=== PATIENT | male | born 1940 | race Asian ===

== ENCOUNTER 2017-05-14 05:34 | Inpatient (IN) | payer MEDICARE, OTHER ==
[~2017-05-14] VITALS: Ht 165.1 cm; Wt 63.5 kg
--- NOTE | 2017-05-14 05:23 | Emergency Room Report ---
History of Present Illness General Source: Patient, Family Member, Medical Record, EMS (ALESSIO BANKS M.D.) Present Illness HPI 79YOM BIBEMS from home with coffee-ground emesis and then vomiting bright red blood. Was drinking "a lot last night." Also, fell and hit head this morning Unclear if patient fell first and then had coffee ground emesis or vice versa HPI very limited even with RN translating Malay states he "had stent placed in heart at [facility]" recently EMS rhythm strip was "sinus." (ALESSIO BANKS M.D.) Allergies: Coded Allergies: No Known Allergies (Unverified , 05/14/17) Patient History Limited by: language barrier Past Medical History: none Past Surgical History: none Pertinent Family History: none Social History: Denies: smoking, alcohol use, drug use Immunizations: UTD Reviewed Nursing Documentation: PMH: Agreed, PSxH: Agreed (ALESSIO BANKS M.D.) Review of Systems All Other Systems: limited - D/t language barrier (ALESSIO BANKS M.D.) Physical Exam Sp02 EP Interpretation: reviewed, normal General Appearance: normal inspection, well appearing, no apparent distress, alert, GCS 15, non-toxic, other - Bright red blood on face Head: normocephalic, atraumatic Eyes: bilateral eye PERRL, bilateral eye EOMI ENT: normal ENT inspection, hearing grossly normal, normal voice, other - Oozing bright red blood from left nostril Neck: normal inspection, full range of motion, supple, no bony tend Respiratory: normal inspection, lungs clear, normal breath sounds, no respiratory distress, no retraction, no accessory muscle use, no wheezing, speaking full sentences, chest symmetrical, palpation of chest normal Cardiovascular #1: regular rate, rhythm, no edema Gastrointestinal: normal inspection, normal bowel sounds, non tender, soft, no guarding, no hernia Genitourinary: no CVA tenderness Musculoskeletal: normal inspection, back normal, normal range of motion, Autumn' s Sign negative Neurologic: normal inspection, alert, responsive, speech normal Psychiatric: normal inspection, judgement/insight normal, mood/affect normal Skin: normal inspection, normal color, no rash (ALESSIO BANKS M.D.) Medical Decision Making Medicare Attestation I Alessio Bnaks MD hereby attest that the medical record entry for date of service, 05/14/17 accurately reflects signatures/notations that I made in my capacity as MD when I treated/diagnosed the above listed Medicare beneficiary. I attest that this information is true, accurate and complete to the best of my knowledge. I understand that any falsification, omission, or concealment of material fact may subject me to administrative, civil, or criminal liability. This patient warrants hospital admission for extreme of age and has a condition that cannot be treated as outpatient. (ALESSIO BANKS M.D.) Diagnostic Impression: Primary Impression: Hematemesis Qualified Codes: K92.0 - Hematemesis Additional Impressions: Upper GI bleed Epistaxis Coffee ground emesis ER Course Unknown if fall preceeded coffee ground emesis/nose bleed or vice versa Very poor history from patient and Will proceed with CT head, facial bones to evaluate for acute trauma Labs to assess for concern for UPPER GI BLEED IV Protonix, zofran, IVF given At time of signout, patient was stable in ED All testing was pending Endorsed to Dr Brown at 630am (ALESSIO BANKS M.D.) ER Course Please refer to the initial note for the history, exam and presentation At this time the patient continues to do hemodynamically well CT head did not show any acute disease CT facial did not show any obvious acute fractures Patient's blood work reveals elevated creatinine Patient does not meet acute transfusion criteria at this time In speaking with the family with Malay deaf interpreter, patient appears to have had vomiting of blood/coffee-ground prior to his fall and epistaxis At this time no signs of acute bleeding And the patient is stable for further inpatient care Labs Test 05/14/17 05:50 White Blood Count 12.8 K/UL (4.8-10.8) Red Blood Count 3.16 M/UL (4.70-6.10) Hemoglobin 10.5 G/DL (14.2-18.0) Hematocrit 32.4 % (42.0-52.0) Mean Corpuscular Volume 103 FL (80-99) Mean Corpuscular Hemoglobin 33.1 PG (27.0-31.0) Mean Corpuscular Hemoglobin Concent 32.3 G/DL (32.0-36.0) Red Cell Distribution Width 11.5 % (11.6-14.8) Platelet Count 161 K/UL (150-450) Mean Platelet Volume 6.6 FL (6.5-10.1) Neutrophils (%) (Auto) 72.3 % (45.0-75.0) Lymphocytes (%) (Auto) 19.3 % (20.0-45.0) Monocytes (%) (Auto) 5.1 % (1.0-10.0) Eosinophils (%) (Auto) 2.9 % (0.0-3.0) Basophils (%) (Auto) 0.4 % (0.0-2.0) Prothrombin Time 9.5 SEC (9.30-11.50) Prothromb Time International Ratio 0.9 (0.9-1.1) Activated Partial Thromboplast Time 22 SEC (23-33) Sodium Level 135 MMOL/L (136-145) Potassium Level 3.4 MMOL/L (3.5-5.1) Chloride Level 97 MMOL/L (98-107) Carbon Dioxide Level 22 MMOL/L (21-32) Anion Gap 16 mmol/L (5-15) Blood Urea Nitrogen 16 mg/dL (7-18) Creatinine 1.4 MG/DL (0.55-1.30) Estimat Glomerular Filtration Rate mL/min (>60) Glucose Level 200 MG/DL (74-106) Calcium Level 8.8 MG/DL (8.5-10.1) Total Bilirubin 0.3 MG/DL (0.2-1.0) Aspartate Amino Transf (AST/SGOT) 39 U/L (15-37) Alanine Aminotransferase (ALT/SGPT) 53 U/L (12-78) Alkaline Phosphatase 60 U/L (46-116) Total Creatine Kinase 115 U/L (26-308) Creatine Kinase MB 1.4 NG/ML (0.0-3.6) Creatine Kinase MB Relative Index 1.2 Troponin I 0.005 ng/mL (0.000-0.056) Pro-B-Type Natriuretic Peptide 397 pg/mL (0-125) Total Protein 7.1 G/DL (6.4-8.2) Albumin 3.7 G/DL (3.4-5.0) Globulin 3.4 g/dL Albumin/Globulin Ratio 1.1 (1.0-2.7) (KELLI BROWN D.O.) EKG Diagnostic Results Rate: tachycardiac Rhythm: NSR, other - PACs ST Segments: no acute changes ASA given to the pt in ED: No (ALESSIO BANKS M.D.) Rhythm Strip Diag. Results EP Interpretation: yes Rate: 105 Rhythm: NSR, no PVC's, no ectopy (ALESSIO BANKS M.D.) EP Interpretation: yes Rate: 105 Rhythm: no PVC's, no ectopy, other - sinus tach (KELLI BROWN D.O.) Chest X-Ray Diagnostic Results Chest X-Ray Diagnostic Results : Chest X-Ray Ordered: Yes # of Views/Limited/Complete: 1 View Indication: Chest Pain Interpretation: no consolidation, no effusion, no pneumothorax, no acute cardiopulmonary disease Impression: No acute disease Electronically Signed by: Dr Alessio Banks MD (ALESSIO BANKS M.D.) Chest X-Ray Diagnostic Results : Chest X-Ray Ordered: Yes # of Views/Limited/Complete: 1 View Indication: Chest Pain EP Interpretation: Yes Interpretation: no consolidation, no effusion, no pneumothorax Impression: No acute disease Electronically Signed by: Kelli Brown DO (KELLI BROWN D.O.) CT/MRI/US Diagnostic Results CT/MRI/US Diagnostic Results : Impression CT head: Motion artifact no obvious acute disease CT facial: Sinus disease no obvious acute fracture, evidence of previous deviation, (KELLI BROWN.Yojana) Status: improved (ALESSIO BANKS M.D.) Status: improved (KELLI BROWN D.O.) Disposition: ADMITTED INPATIENT Condition: Serious ALESSIO BANKS M.D. May 14, 2017 05:23 KELLI BROWN D.O. May 14, 2017 08:01
[2017-05-14] MEDS ORDERED: Pantoprazole Inj IVP ONE (05:45)
[2017-05-14 06:17] LABS: BASOPHILS % (AUTO) 0.4 % (0.0-2.0); EOSINOPHILS % (AUTO) 2.9 % (0.0-3.0); LYMPHOCYTES % (AUTO) 19.3 % (20.0-45.0); MEAN CORPUSCULAR HEMOGLOBIN 33.1 PG (27.0-31.0); MEAN CORPUSCULAR HGB CONC 32.3 G/DL (32.0-36.0); MEAN CORPUSCULAR VOLUME 103 FL (80-99); MEAN PLATELET VOLUME 6.6 FL (6.5-10.1); MONOCYTES % (AUTO) 5.1 % (1.0-10.0); NEUTROPHILS % (AUTO) 72.3 % (45.0-75.0); PLATELET COUNT 161 K/UL (150-450); RED BLOOD COUNT 3.16 M/UL (4.70-6.10); RED CELL DISTRIBUTION WIDTH 11.5 % (11.6-14.8); WHITE BLOOD COUNT 12.8 K/UL (4.8-10.8)
[2017-05-14] MEDS ORDERED: BRILINTA90 MG PO (06:29)
[2017-05-14] MEDS ORDERED: ASPIRIN81 MG ORAL (06:29)
[2017-05-14 06:30] LABS: ALANINE AMINOTRANSFERASE 53 U/L (12-78); ALBUMIN/GLOBULIN RATIO 1.1 (1.0-2.7); ANION GAP 16 mmol/L (5-15); ASPARTATE AMINO TRANSFERASE 39 U/L (15-37); CALCIUM 8.8 MG/DL (8.5-10.1); CARBON DIOXIDE 22 MMOL/L (21-32); CHLORIDE 97 MMOL/L (98-107); CREATININE 1.4 MG/DL (0.55-1.30); INR 0.9 (0.9-1.1); POTASSIUM 3.4 MMOL/L (3.5-5.1); PROTHROMBIN TIME 9.5 SEC (9.30-11.50); SODIUM 135 MMOL/L (136-145); TOTAL PROTEIN 7.1 G/DL (6.4-8.2)
[2017-05-14 06:42] LABS: CKMB 1.4 NG/ML (0.0-3.6)
[2017-05-14 06:51] VITALS: BP 128/58
[2017-05-14] MEDS ORDERED: Norco 5mg/325mg tab ORAL ONE (07:15)
--- NOTE | 2017-05-14 08:48 | Diagnostic Imaging Report ---
Indication: Facial trauma and pain Technique: Continuous helical transaxial imaging of the maxillofacial structures obtained without intravenous contrast administration. Coronal 2-D reformats were also obtained. Study obtained in a Siemens sensation [address] Automatic Exposure Control was utilized. Total Dose length Product (DLP): [address] Dose Index Volume (CTDIvol): 0.15, 28.19 mGy Comparison: None Findings: There is no evidence of an acute fracture. Paranasal sinuses and mastoids are clear. Soft tissues are unremarkable. Minimal mucosal thickening demonstrated within the paranasal sinuses. There is a small old fracture of the right medial orbital wall. The globes and orbits appear normal. There is no retrobulbar hemorrhage or proptosis. Mastoids are clear bilaterally. Impression: No acute injury. Sinusitis The CT scanner at [facility] is accredited by the [employer] and the scans are performed using dose optimization techniques as appropriate to a performed exam including Automatic Exposure control.
[2017-05-14 09:37] VITALS: BP 143/60
[2017-05-14] MEDS ORDERED: Morphine Sulfate 10mg/5ml Oral Soln ud ORAL PRN (09:45)
[2017-05-14] MEDS ORDERED: Morphine 5mg/2.5ml Oral Soln ORAL PRN ×2 (10:00→13:00)
[2017-05-14 10:40] VITALS: BP 136/66
--- NOTE | 2017-05-14 10:54 | Diagnostic Imaging Report ---
Indication: Altered mental status Technique: Contiguous 5 mm thick transaxial imaging of the head obtained in a Siemens Sensation [address] scanner. Soft tissue and bone windows generated. Automatic Exposure Control was utilized. Total Dose length Product (DLP): [address] Dose Index Volume (CTDIvol): 70.38, 0.15 mGy Comparison: none Findings: There is mild prominence of the ventricles, basal cisterns, and cerebral sulci consistent with atrophy. Mild, nonspecific, white matter hypoattenuation is noted throughout the brain consistent with chronic small vessel disease. There is no midline shift, edema, acute hemorrhage, mass effect, or abnormal extra-axial fluid collections. Bones and extra osseous soft tissues are unremarkable. Impression: No acute intracranial bleed, mass effect or edema. Mild atrophy of the brain. Nonspecific white matter hypoattenuation probably due to chronic small vessel disease. [facility] has communicated the preliminary results to the Emergency Department. Their findings are largely concordant with this report. The CT scanner at [facility] is accredited by the [employer] and the scans are performed using dose optimization techniques as appropriate to a performed exam including Automatic Exposure control.
--- NOTE | 2017-05-14 12:58 | GI Initial Consult Note ---
JannetBrie Iglesia N.P. 05/14/17 1258: History of Present Illness General Date patient seen: May 14, 2017 Time patient seen: 10:00 Reason for Hospitalization: Gastrointestinal Bleed Referring physician: SANTANA WIGGINS Reason for Consultation: HEMATEMESIS Present Illness HPI 79YOM BIBEMS from home with coffee-ground emesis and then vomiting bright red blood. Was drinking "a lot last night." Also, fell and hit head this morning Unclear if patient fell first and then had coffee ground emesis or vice versa HPI very limited even with RN translating Azeri states he "had stent placed in heart at [facility]" recently EMS rhythm strip was "sinus." GI consulted for hematemesis. HPI as noted above. Pt seen in ED, awake A&Ox4 NAD with no active s/sx of N/V/D with family member at bedside. Has complaint of left extremity pain. Pt presents today with mild anemia and leukocytosis. Unknown history of endoscopic / colonoscopies. Per the , the patient had both hematemesis and coffee grounds. Home Meds Reported Medications Ticagrelor* (BRILINTA*) 90 Mg Tablet, 90 MG PO BID, TAB 05/14/17 Aspirin* (ASPIRIN*) 81 Mg Tab.chew, 81 MG ORAL DAILY, TAB 05/14/17 Med list reviewed/reconciled: Yes Allergies: Coded Allergies: No Known Allergies (Unverified , 05/14/17) Patient History History Provided By: Patient, Family Member, Medical Record PMH Narrative Limited by: language barrier Past Medical History: none Past Surgical History: none Pertinent Family History: none Social History: Denies: smoking, alcohol use, drug use Immunizations: UTD Reviewed Nursing Documentation: PMH: Agreed, PSxH: Agreed Review of Systems All Other Systems: negative except mentioned in HPI Physical Exam Vital Signs Date Time Temp Pulse Resp B/P (MAP) Pulse Ox O2 Delivery O2 Flow Rate FiO2 05/14/17 05:28 97.9 93 22 121/71 98 Room Air Sp02 EP Interpretation: reviewed Labs Laboratory Tests Test 05/14/17 05:50 White Blood Count 12.8 K/UL (4.8-10.8) H Red Blood Count 3.16 M/UL (4.70-6.10) L Hemoglobin 10.5 G/DL (14.2-18.0) L Hematocrit 32.4 % (42.0-52.0) L Mean Corpuscular Volume 103 FL (80-99) H Mean Corpuscular Hemoglobin 33.1 PG (27.0-31.0) H Mean Corpuscular Hemoglobin Concent 32.3 G/DL (32.0-36.0) Red Cell Distribution Width 11.5 % (11.6-14.8) L Platelet Count 161 K/UL (150-450) Mean Platelet Volume 6.6 FL (6.5-10.1) Neutrophils (%) (Auto) 72.3 % (45.0-75.0) Lymphocytes (%) (Auto) 19.3 % (20.0-45.0) L Monocytes (%) (Auto) 5.1 % (1.0-10.0) Eosinophils (%) (Auto) 2.9 % (0.0-3.0) Basophils (%) (Auto) 0.4 % (0.0-2.0) Prothrombin Time 9.5 SEC (9.30-11.50) Prothromb Time International Ratio 0.9 (0.9-1.1) Activated Partial Thromboplast Time 22 SEC (23-33) L Sodium Level 135 MMOL/L (136-145) L Potassium Level 3.4 MMOL/L (3.5-5.1) L Chloride Level 97 MMOL/L (98-107) L Carbon Dioxide Level 22 MMOL/L (21-32) Anion Gap 16 mmol/L (5-15) H Blood Urea Nitrogen 16 mg/dL (7-18) Creatinine 1.4 MG/DL (0.55-1.30) H Estimat Glomerular Filtration Rate mL/min (>60) Glucose Level 200 MG/DL (74-106) H Calcium Level 8.8 MG/DL (8.5-10.1) Total Bilirubin 0.3 MG/DL (0.2-1.0) Aspartate Amino Transf (AST/SGOT) 39 U/L (15-37) H Alanine Aminotransferase (ALT/SGPT) 53 U/L (12-78) Alkaline Phosphatase 60 U/L (46-116) Total Creatine Kinase 115 U/L (26-308) Creatine Kinase MB 1.4 NG/ML (0.0-3.6) Creatine Kinase MB Relative Index 1.2 Troponin I 0.005 ng/mL (0.000-0.056) Pro-B-Type Natriuretic Peptide 397 pg/mL (0-125) H Total Protein 7.1 G/DL (6.4-8.2) Albumin 3.7 G/DL (3.4-5.0) Globulin 3.4 g/dL Albumin/Globulin Ratio 1.1 (1.0-2.7) General Appearance: well appearing, no apparent distress, alert, thin Head: normocephalic EENT: PERRL/EOMI, normal ENT inspection Neck: supple Respiratory: normal breath sounds, no respiratory distress Cardiovascular: normal rate Gastrointestinal: normal inspection, non tender, soft, normal bowel sounds, non -distended Rectal: deferred Genitourinary: deferred Musculoskeletal: normal inspection, back normal Neurologic: normal inspection, alert, oriented x3, responsive Psychiatric: normal inspection, judgement/insight normal, memory normal Skin: normal inspection, normal color, no rash, warm/dry, palpation normal, well hydrated Lymphatic: normal inspection, no adenopathy Current Medications Current Medications Medications (Trade) Dose Ordered Sig/Jay Route PRN Reason Start Time Stop Time Status Last Admin Dose Admin Morphine Sulfate (Morphine 5mg/ 2.5ml Oral Soln) 5 mg Q4H PRN ORAL For Pain 05/14/17 10:00 06/13/17 09:59 05/14/17 09:59 GI: Plan Problems: (1) Upper GI bleed (2) Hematemesis (3) Coffee ground emesis Plan EGD scheduled tomorrow given hematemesis - CLD now, NPO @ FL. - hold all blood thinners anemia work up OB stool r/o GI bleed monitor H&H, prn transfusions bowel regime ppi fu labs Discussed with Dr. Rosen. Thank you for this patient referral, we will follow. BREONNA ROSEN 05/15/17 1008: History of Present Illness General Reason for Hospitalization: Gastrointestinal Bleed Present Illness Home Meds Reported Medications Ticagrelor* (BRILINTA*) 90 Mg Tablet, 90 MG PO BID, TAB 05/14/17 Aspirin* (ASPIRIN*) 81 Mg Tab.chew, 81 MG ORAL DAILY, TAB 05/14/17 Allergies: Coded Allergies: No Known Allergies (Unverified , 05/14/17) GI: Plan Plan The patient was seen and examined at bedside and all new and available data was reviewed in the patients chart. I agree with the above findings, impression and plan. (Patient seen earlier today. Signature stamp does not reflect patient encounter time.). - MD [facility] Iglesia LorenzoPGinger May 14, 2017 12:58 BREONNA ROSEN May 15, 2017 10:08
[2017-05-14] MEDS ORDERED: Naloxone 2 MG in D5W 500ml 498 ML IV SCH (13:45)
[2017-05-14] MEDS ORDERED: Morphine Sulfate 4mg/ml Inj IM PRN (13:45)
[2017-05-14] MEDS: Morphine Sulfate 4mg/ml Inj IVP PRN ×3 (14:00→19:59)
--- NOTE | 2017-05-14 14:14 | Diagnostic Imaging Report ---
Indication: Pain Findings: Single view left shoulder Alignment of the left shoulder is normal. No acute fracture is identified. Bones are osteopenic. Soft tissues are unremarkable. Impression: No acute injury
[2017-05-14] MEDS ORDERED: Phytonadione 10 MG in D5W 55 ML IVPB ONE (14:45)
[2017-05-14] MEDS ORDERED: Miralax 17gm pkt ORAL PRN (14:45)
[2017-05-14] MEDS ORDERED: Nitroglycerin Subl 0.4mg tab SL PRN (14:45)
[2017-05-14] MEDS ORDERED: Mylanta II UD 30ml ORAL PRN (14:45)
--- NOTE | 2017-05-14 14:45 | Consultation ---
History of Present Illness General Chief Complaint: Gastrointestinal Bleed Referring physician: SANTANA WIGGINS Reason for Consultation: inpatient management Present Illness HPI 79 year old male with hx of CAD, Stent, on Brilinta, brought in by paramedics from home with coffee-ground emesis and then vomiting bright red blood. He also fell and hit head this morning. states he "had stent placed in heart at [facility]" recently. He is admitted to telemetry for further work up. Allergies: Coded Allergies: No Known Allergies (Unverified , 05/14/17) Medication History Scheduled Aspirin* (Aspirin*), 81 MG ORAL DAILY, (Reported) Ticagrelor* (Brilinta*), 90 MG PO BID, (Reported) Patient History Healthcare decision maker Resuscitation status Full Code Advanced Directive on File Past Medical/Surgical History Past Medical/Surgical History: (1) CAD (coronary artery disease) Review of Systems Constitutional: Reports: malaise, weakness Eye: Reports: no symptoms Gastrointestinal: Reports: hematemesis Physical Exam General Appearance: WD/WN Lines, tubes and drains: peripheral HEENT: normocephalic, anicteric Neck: non-tender, normal inspection Respiratory/Chest: chest wall non-tender, lungs clear Breasts: no masses Cardiovascular/Chest: regular rhythm Abdomen: normal bowel sounds, non tender Genitourinary/Rectal: normal genital exam, heme negative stool Last 24 Hour Vital Signs Date Time Temp Pulse Resp B/P (MAP) Pulse Ox O2 Delivery O2 Flow Rate FiO2 05/14/17 10:40 97.7 89 21 136/66 98 Room Air 05/14/17 10:14 97.8 94 18 143/60 98 Room Air 05/14/17 10:05 97.8 05/14/17 09:48 97.8 05/14/17 09:37 94 18 143/60 98 Room Air 05/14/17 06:51 97.8 100 18 128/58 97 Room Air 05/14/17 05:28 97.9 93 22 121/71 98 Room Air Intake and Output 05/14/17 05/15/17 19:00 07:00 Intake Total 0 ml Balance 0 ml Intake Oral 0 ml Laboratory Tests Test 05/14/17 05:50 White Blood Count 12.8 K/UL (4.8-10.8) H Red Blood Count 3.16 M/UL (4.70-6.10) L Hemoglobin 10.5 G/DL (14.2-18.0) L Hematocrit 32.4 % (42.0-52.0) L Mean Corpuscular Volume 103 FL (80-99) H Mean Corpuscular Hemoglobin 33.1 PG (27.0-31.0) H Mean Corpuscular Hemoglobin Concent 32.3 G/DL (32.0-36.0) Red Cell Distribution Width 11.5 % (11.6-14.8) L Platelet Count 161 K/UL (150-450) Mean Platelet Volume 6.6 FL (6.5-10.1) Neutrophils (%) (Auto) 72.3 % (45.0-75.0) Lymphocytes (%) (Auto) 19.3 % (20.0-45.0) L Monocytes (%) (Auto) 5.1 % (1.0-10.0) Eosinophils (%) (Auto) 2.9 % (0.0-3.0) Basophils (%) (Auto) 0.4 % (0.0-2.0) Prothrombin Time 9.5 SEC (9.30-11.50) Prothromb Time International Ratio 0.9 (0.9-1.1) Activated Partial Thromboplast Time 22 SEC (23-33) L Sodium Level 135 MMOL/L (136-145) L Potassium Level 3.4 MMOL/L (3.5-5.1) L Chloride Level 97 MMOL/L (98-107) L Carbon Dioxide Level 22 MMOL/L (21-32) Anion Gap 16 mmol/L (5-15) H Blood Urea Nitrogen 16 mg/dL (7-18) Creatinine 1.4 MG/DL (0.55-1.30) H Estimat Glomerular Filtration Rate mL/min (>60) Glucose Level 200 MG/DL (74-106) H Calcium Level 8.8 MG/DL (8.5-10.1) Total Bilirubin 0.3 MG/DL (0.2-1.0) Aspartate Amino Transf (AST/SGOT) 39 U/L (15-37) H Alanine Aminotransferase (ALT/SGPT) 53 U/L (12-78) Alkaline Phosphatase 60 U/L (46-116) Total Creatine Kinase 115 U/L (26-308) Creatine Kinase MB 1.4 NG/ML (0.0-3.6) Creatine Kinase MB Relative Index 1.2 Troponin I 0.005 ng/mL (0.000-0.056) Pro-B-Type Natriuretic Peptide 397 pg/mL (0-125) H Total Protein 7.1 G/DL (6.4-8.2) Albumin 3.7 G/DL (3.4-5.0) Globulin 3.4 g/dL Albumin/Globulin Ratio 1.1 (1.0-2.7) Height (Feet): 5 Height (Inches): 5.00 Weight (Pounds): 140 Medications Current Medications Medications (Trade) Dose Ordered Sig/Jay Route PRN Reason Start Time Stop Time Status Last Admin Dose Admin Morphine Sulfate (Morphine Sulfate) 4 mg Q4H PRN IVP For Pain 05/14/17 17:45 05/21/17 17:44 05/14/17 14:21 Morphine Sulfate (Morphine 5mg/ 2.5ml Oral Soln) 5 mg Q2H PRN ORAL For Severe Pain 05/14/17 13:00 06/13/17 12:59 05/14/17 13:07 Ondansetron HCl (Zofran) 4 mg Q6H PRN IVP Nausea & Vomiting 05/14/17 13:00 06/13/17 12:59 Pantoprazole (Protonix) 40 mg EVERY 12 HOURS IVP 05/14/17 21:00 06/13/17 20:59 Assessment/Plan Problem List: (1) Hemorrhagic shock ICD Codes: R57.8 - Other shock SNOMED: 925063 (2) Upper GI bleed ICD Codes: K92.2 - Gastrointestinal hemorrhage, unspecified SNOMED: 65673334 (3) CAD (coronary artery disease) ICD Codes: I25.10 - Atherosclerotic heart disease of [place] coronary artery without angina pectoris SNOMED: 37323041 (4) Stented coronary artery ICD Codes: Z95.5 - Presence of coronary angioplasty implant and graft SNOMED: 95734173, 302911622 Assessment/Plan NPO IV fluids check h/h transfuse prn cardio to see MARTA ZALDIVAR May 14, 2017 14:45
--- NOTE | 2017-05-14 14:48 | Diagnostic Imaging Report ---
Indication: Neck Pain Findings: 3 views of the cervical spine were obtained. Moderate spondylosis with hypertrophic spurs, mostly bridging from C3-C6. C7 and T1 are not seen on this study. The bones are osteopenic. There is no obvious fracture. There is no soft tissue swelling identified. Calcifications of the carotid arteries noted within the neck. Aorta is also moderately calcified. Impression: Degenerative disease of the cervical spine as described above. Lower cervical spine not visualized. Atherosclerotic disease
--- NOTE | 2017-05-14 14:52 | Diagnostic Imaging Report ---
Indication: Right shoulder pain Findings: Single view right shoulder obtained There is no fracture or malalignment. Bones are osteopenic. Impression: Negative exam
[2017-05-14] MEDS: D5NS 1,000 ML IV SCH (16:03)
--- NOTE | 2017-05-14 18:41 | History & Physical ---
History and Physical History & Physicial Dictated for Int Med-Dr Wu no. [id number]. AYLEEN CAMERON May 14, 2017 18:41
--- NOTE | 2017-05-14 19:10 | Cardiology Progress Note ---
Subjective Subjective coffee graoun demesis cad s/p syntergy stent in proxima lad 02/16/2017 good elizabeth alcholism tobacoo use do s/p fall hodl dapt agree with endsocpy to see if treatable identifiable bleedign souce from gastric area need to resume antiplat therpy as soon as possible and safe specially if no sig drop in h/h [id number] Objective Last 24 Hour Vital Signs Date Time Temp Pulse Resp B/P (MAP) Pulse Ox O2 Delivery O2 Flow Rate FiO2 05/14/17 16:00 90 05/14/17 10:40 97.7 89 21 136/66 98 Room Air 05/14/17 10:14 97.8 94 18 143/60 98 Room Air 05/14/17 10:05 97.8 05/14/17 09:48 97.8 05/14/17 09:37 94 18 143/60 98 Room Air 05/14/17 06:51 97.8 100 18 128/58 97 Room Air 05/14/17 05:28 97.9 93 22 121/71 98 Room Air Intake and Output 05/14/17 05/15/17 19:00 07:00 Intake Total 0 ml Balance 0 ml Intake Oral 0 ml Laboratory Tests Test 05/14/17 05:50 White Blood Count 12.8 K/UL (4.8-10.8) H Red Blood Count 3.16 M/UL (4.70-6.10) L Hemoglobin 10.5 G/DL (14.2-18.0) L Hematocrit 32.4 % (42.0-52.0) L Mean Corpuscular Volume 103 FL (80-99) H Mean Corpuscular Hemoglobin 33.1 PG (27.0-31.0) H Mean Corpuscular Hemoglobin Concent 32.3 G/DL (32.0-36.0) Red Cell Distribution Width 11.5 % (11.6-14.8) L Platelet Count 161 K/UL (150-450) Mean Platelet Volume 6.6 FL (6.5-10.1) Neutrophils (%) (Auto) 72.3 % (45.0-75.0) Lymphocytes (%) (Auto) 19.3 % (20.0-45.0) L Monocytes (%) (Auto) 5.1 % (1.0-10.0) Eosinophils (%) (Auto) 2.9 % (0.0-3.0) Basophils (%) (Auto) 0.4 % (0.0-2.0) Prothrombin Time 9.5 SEC (9.30-11.50) Prothromb Time International Ratio 0.9 (0.9-1.1) Activated Partial Thromboplast Time 22 SEC (23-33) L Sodium Level 135 MMOL/L (136-145) L Potassium Level 3.4 MMOL/L (3.5-5.1) L Chloride Level 97 MMOL/L (98-107) L Carbon Dioxide Level 22 MMOL/L (21-32) Anion Gap 16 mmol/L (5-15) H Blood Urea Nitrogen 16 mg/dL (7-18) Creatinine 1.4 MG/DL (0.55-1.30) H Estimat Glomerular Filtration Rate mL/min (>60) Glucose Level 200 MG/DL (74-106) H Calcium Level 8.8 MG/DL (8.5-10.1) Total Bilirubin 0.3 MG/DL (0.2-1.0) Aspartate Amino Transf (AST/SGOT) 39 U/L (15-37) H Alanine Aminotransferase (ALT/SGPT) 53 U/L (12-78) Alkaline Phosphatase 60 U/L (46-116) Total Creatine Kinase 115 U/L (26-308) Creatine Kinase MB 1.4 NG/ML (0.0-3.6) Creatine Kinase MB Relative Index 1.2 Troponin I 0.005 ng/mL (0.000-0.056) Pro-B-Type Natriuretic Peptide 397 pg/mL (0-125) H Total Protein 7.1 G/DL (6.4-8.2) Albumin 3.7 G/DL (3.4-5.0) Globulin 3.4 g/dL Albumin/Globulin Ratio 1.1 (1.0-2.7) RAKESH MCNAMARA May 14, 2017 19:10
--- NOTE | 2017-05-14 19:15 | History and Physical Report ---
DATE OF ADMISSION: 05/14/2017 CHIEF COMPLAINT: The patient is a 76-year-old male, presents with chief complaint of vomiting blood. HISTORY OF PRESENT ILLNESS: Especially history and physical is obtained from the patient's chart. The patient is Estonian speaking. The patient's is present. According to the patient's , the patient drank quite a bit last evening, 05/13/2017. The patient initially had coffee-grounds emesis vomiting. This turn to phill bright red blood. The patient presented to [facility] room. The patient was admitted for upper gastrointestinal bleed to rule out esophageal varices. PAST MEDICAL HISTORY: Significant for coronary artery disease, status post coronary artery stents placed. PAST SURGICAL HISTORY: Significant for coronary angiography as above. CURRENT MEDICATIONS: 1. Aspirin 81 mg one tablet p.o. daily. 2. Brilinta 90 mg p.o. twice daily. ALLERGIES: No known drug allergies. SOCIAL HISTORY: The patient is . The patient's is at the bedside. The patient denies tobacco or alcohol use. REVIEW OF SYSTEMS: Unable to assess secondary to the patient's mental status. PHYSICAL EXAMINATION: GENERAL: The patient is a well-developed and well-nourished male, in no apparent distress. VITAL SIGNS: Temperature 97.9 degrees, respirations 22, pulse 93, blood pressure 129/71. HEENT: Eyes, pupils equal and responsive to light and accommodation. Extraocular movements are intact. NECK: Supple without lymphadenopathy. CHEST: Lungs are clear to auscultation bilaterally without wheezes or rales. CARDIOVASCULAR: Regular rate. S1 and S2 normal without murmurs, rubs, or gallops. ABDOMEN: Soft, nontender, and nondistended. Positive bowel sounds. No evidence of hepatosplenomegaly. Currently, no rebound or guarding noted. EXTREMITIES: Negative for clubbing, cyanosis, or edema. RECTAL/GENITAL: Refused. NEUROLOGIC: Cranial nerves II through XII are grossly intact without focal deficits. Motor strength is 5/5 bilaterally. Deep tendon reflexes are 2+ plantar. LABORATORY AND DIAGNOSTIC DATA: WBC 12.8, hemoglobin 10.5, hematocrit 32.4 and platelets 161,000. Sodium 135, potassium 3.4, chloride 97, CO2 22, BUN 16, creatinine 1.4 and glucose 200. ASSESSMENT: The patient is a 76-year-old male with 1. Upper gastrointestinal hemorrhage. 2. Alcohol abuse. 3. Coronary artery disease. TREATMENT: 1. Upper gastrointestinal hemorrhage. A Gastroenterology consultation will be obtained with Dr. Sumanth Cobb. The patient is scheduled for endoscopy. We will follow recommendations of GI, Dr. Cobb. 2. Coronary artery disease. Aspirin has been held at this point secondary to gastrointestinal hemorrhage. Ru Cedeño M.D. DR: ROYCE JOB#: [id number] CC:
[2017-05-14 20:00] VITALS: BP 146/71
[2017-05-14] MEDS: Pantoprazole Inj IVP SCH (20:00)
[2017-05-14 20:19] LABS: BASOPHILS % (AUTO) 0.5 % (0.0-2.0); EOSINOPHILS % (AUTO) 2.4 % (0.0-3.0); LYMPHOCYTES % (AUTO) 25.5 % (20.0-45.0); MEAN CORPUSCULAR HEMOGLOBIN 32.2 PG (27.0-31.0); MEAN CORPUSCULAR HGB CONC 31.6 G/DL (32.0-36.0); MEAN CORPUSCULAR VOLUME 102 FL (80-99); MEAN PLATELET VOLUME 6.4 FL (6.5-10.1); MONOCYTES % (AUTO) 7.7 % (1.0-10.0); NEUTROPHILS % (AUTO) 63.8 % (45.0-75.0); PLATELET COUNT 140 K/UL (150-450); RED BLOOD COUNT 3.17 M/UL (4.70-6.10); RED CELL DISTRIBUTION WIDTH 11.2 % (11.6-14.8); WHITE BLOOD COUNT 10.6 K/UL (4.8-10.8)
[2017-05-15] VITALS (10 sets, daily range): BP systolic 112–156; BP diastolic 62–77
[2017-05-15] MEDS: D5NS 1,000 ML IV SCH ×3 (01:00→17:06)
[2017-05-15] MEDS: Morphine Sulfate 4mg/ml Inj IVP PRN ×5 (01:04→21:27)
--- NOTE | 2017-05-15 04:00 | Consultation ---
DATE OF CONSULTATION: 05/14/2017 CARDIOLOGY CONSULTATION CONSULTING PHYSICIAN: Juancho Brand M.D. REFERRING PHYSICIAN: Oscar Crespo M.D. REASON FOR REFERRAL: Gastrointestinal bleed in the setting of the recent stent. HISTORY OF PRESENT ILLNESS: This is a very unfortunate 76-year-old gentleman, who is a Lao speaking who also speaks some Romansh. The patient is unfortunately not able to provide any meaningful history. He is able to give some information but really he is confused and I am not sure how much of the information he is providing me is accurate. I have contacted his . Apparently, the patient has had a history of a stent put in a few months ago at [facility]. I have contacted [facility]. I am waiting for them to fax me at least the result of the cardiac catheterization. The patient denies any chest pain. Denies any shortness of breath. Denies any dizziness or lightheadedness. He was brought into the emergency room at [facility] with the emergency medical services because of coffee-ground emesis as well as some bright red blood vomiting. Apparently, he was drinking a lot of alcohol the evening before this admission and apparently he fell and hit his head in the morning. No other information unfortunately is available. Information is obtained from review of the patient's records as well as from discussion with the patient's family. A friend just showed up who told me that apparently he was told by the patient that he was sleeping and he woke up because of coughing and had bloody coffee-colored vomitus and he called the paramedics and on arrival to the emergency room he apparently fell and he hit his head and he eventually had evaluations here in the emergency room. I am waiting for [facility] to send me some records. Apparently, he has had a history of heart problems for a long time according to his friend, but he is not aware of any other medical problems. ALLERGIES: The patient is not allergic to any medications. SOCIAL HISTORY: He does smoke and does drink alcoholic beverages. REVIEW OF SYSTEMS: GASTROINTESTINAL: As mentioned with vomiting and blood. There is no black or bloody stool. GENITOURINARY: Denies any burning or blood in his urine. PULMONARY: Denies any wheezing. He does cough up some material as mentioned. CARDIAC: He denies any chest pain at this time and/or shortness of breath. PHYSICAL EXAMINATION: GENERAL: Shows to be an elderly gentleman, in no respiratory distress. He is lying down flat. VITAL SIGNS: Blood pressure is 143/60 with a heart rate of 94, and temperature 97.8 degrees. NECK: Supple. No jugular venous distention is noted. LUNGS: Clear anteriorly. He has a lot of pain on the right shoulder and is hesitant to get up. CARDIAC EXAMINATION: Regular rhythm. No heaves, thrills, or gallops noted. ABDOMEN: Soft. There is some tenderness in the epigastric area to palpation. No guarding. No rigidity. EXTREMITIES: There is no clubbing, cyanosis, nor is there any edema. NEUROLOGICAL: He is awake and responsive, but he appears to be rather confused. LABORATORY VALUES AND DIAGNOSTIC DATA: Sodium is 135, potassium 3.4, chloride 97, bicarbonate of 22, BUN of 16, creatinine 1.4, and glucose of 200. AST of 39 and ALT of 53. Troponin first set 0.05. ProBNP of 397 with albumin of 3.7. Coags INR is 0.9 and PTT of 22. CT scans of his head have been performed as well as his chest and a cervical spine. The head CT appears to show no acute intracranial mass effect or edema. Facial bone CT shows no acute injury, just sinusitis. X-rays of the shoulder show no acute injury and x-ray of his cervical spine shows degenerative disease of the cervical spine. Lower cervical spine not visualized. The patient's telemetry shows sinus rhythm. His electrocardiogram shows sinus rhythm. No real ST or T-wave abnormalities to a significant degree is documented on the EKG. ASSESSMENT: 1. Coronary artery disease status post coronary artery stent, unknown details. 2. Coffee-ground emesis. 3. Alcoholism possible. 4. History of tobacco use disorder. PLAN: Dr. Crespo, this patient was seen in cardiac consultation. He appears to be hemodynamically stable. There are no electrocardiographic abnormalities. He has been on medications at home include dual antiplatelet therapy, which apparently includes Brilinta as I understand it, as well as aspirin. The rest of his medications are unfortunately unknown to us at this time. I have placed a call to [facility] and I am actually waiting for copies of his records to be sent. Nevertheless, in light of the fact that he is hemodynamically stable, I think he should be observed for repeat cardiac enzymes to be performed as well as serial hemoglobins. I will obtain the records from [facility]. Depending on the duration of the type of stents, we may be able to hold off on the antiplatelet therapies. I would favor however an endoscopic evaluation to see if a source of bleeding can be identified and treated to allow dual antiplatelet therapy to be continued in light of the fact that he had his PCI performed apparently in February. ADDENDUM: The records from [facility] just now became available. Apparently, cardiac catheterization showed the left main to be normal. His left anterior descending proximal had 80% stenosis and ostial 60% diagonal stenosis, then continues with diffuse disease throughout around the apex. Circumflex, patent vessel, moderate calcification, mid vessel at the site of OM takeoff is patent. There is a distal patent OM2 branch as well, a patent PDA and posterolateral branch from the RCA is noted. The patient underwent a stent placement. Apparently, he had a Synergy stent deployed and the date of this procedure was 02/16/2017 and he was given aspirin as well as Brilinta at the time of the procedure. No other records are available. Nevertheless, plans remain the same. I think he should have an endoscopy to identify any source of bleeding and to see whether there is a contraindication to antiplatelet therapy that could be corrected with the procedure. Juancho Brand M.D. DR: EFREN JOB#: [id number] CC:
--- NOTE | 2017-05-15 06:43 | Anethesia Preoperative Eval ---
Anesthesia Pre-op PMH/ROS General Date of Evaluation: May 15, 2017 Time of Evaluation: 06:41 Anesthesiologist: steven ASA Score: ASA 3 Mallampati Score Class I : Soft palate, uvula, fauces, pillars visible Class II: Soft palate, uvula, fauces visible Class III: Soft palate, base of uvula visible Class IV: Only hard plate visible Mallampati Classification: Class II Surgeon: calista Diagnosis: hematemesis/gi bleed Surgical Procedure: egd Anesthesia History: none Social History: smoking - former smoker Allergies: Coded Allergies: No Known Allergies (Unverified , 05/14/17) Medications: see eMAR Past Medical History Cardiovascular: Reports: CAD, other - cardiac stent Hematology/Immune: Reports: anemia Anesthesia Pre-op Phys. Exam Physician Exam Last Vital Signs Date Time Temp Pulse Resp B/P (MAP) Pulse Ox O2 Delivery O2 Flow Rate FiO2 05/15/17 04:05 84 05/15/17 04:00 96.4 20 140/73 96 Room Air Constitutional: NAD Neurologic: CN 2-12 intact Cardiovascular: RRR Respiratory: CTA Gastrointestinal: S/NT/ND Airway Exam Mallampati Score: Class II MO: full Neck: supple TMD: 2fb ROM: full Anesthesia Pre-op A/P Labs Hematology Test 05/14/17 19:37 White Blood Count 10.6 K/UL (4.8-10.8) Red Blood Count 3.17 M/UL (4.70-6.10) L Hemoglobin 10.2 G/DL (14.2-18.0) L Hematocrit 32.3 % (42.0-52.0) L Mean Corpuscular Volume 102 FL (80-99) H Mean Corpuscular Hemoglobin 32.2 PG (27.0-31.0) H Mean Corpuscular Hemoglobin Concent 31.6 G/DL (32.0-36.0) L Red Cell Distribution Width 11.2 % (11.6-14.8) L Platelet Count 140 K/UL (150-450) L Mean Platelet Volume 6.4 FL (6.5-10.1) L Neutrophils (%) (Auto) 63.8 % (45.0-75.0) Lymphocytes (%) (Auto) 25.5 % (20.0-45.0) Monocytes (%) (Auto) 7.7 % (1.0-10.0) Eosinophils (%) (Auto) 2.4 % (0.0-3.0) Basophils (%) (Auto) 0.5 % (0.0-2.0) Risk Assessment & Plan Assessment: asa3 Plan: mac Status Change Before Surgery: No Pre-Antibiotics Drug: JUDIE Lopez May 15, 2017 06:43
[2017-05-15] MEDS: Pantoprazole Inj IVP SCH ×2 (08:05→21:24)
[2017-05-15 08:19] LABS: INR 0.9 (0.9-1.1); PROTHROMBIN TIME 9.4 SEC (9.30-11.50)
[2017-05-15 08:20] LABS: EOSINOPHILS % (AUTO) 4.2 % (0.0-3.0); MEAN CORPUSCULAR HEMOGLOBIN 33.1 PG (27.0-31.0); MEAN CORPUSCULAR HGB CONC 33.1 G/DL (32.0-36.0); MEAN CORPUSCULAR VOLUME 100 FL (80-99); MEAN PLATELET VOLUME 6.4 FL (6.5-10.1); MONOCYTES % (AUTO) 6.9 % (1.0-10.0); NEUTROPHILS % (AUTO) 59.9 % (45.0-75.0); PLATELET COUNT 161 K/UL (150-450); RED BLOOD COUNT 3.32 M/UL (4.70-6.10); RED CELL DISTRIBUTION WIDTH 11.2 % (11.6-14.8); WHITE BLOOD COUNT 10.1 K/UL (4.8-10.8)
[2017-05-15 08:30] LABS: AMYLASE 31 U/L (25-115); LIPASE 36 U/L (73-393)
[2017-05-15 08:34] LABS: ALANINE AMINOTRANSFERASE 44 U/L (12-78); ALBUMIN/GLOBULIN RATIO 1.1 (1.0-2.7); ANION GAP 10 mmol/L (5-15); ASPARTATE AMINO TRANSFERASE 34 U/L (15-37); CALCIUM 8.8 MG/DL (8.5-10.1); CARBON DIOXIDE 23 MMOL/L (21-32); CHLORIDE 102 MMOL/L (98-107); CREATININE 1.1 MG/DL (0.55-1.30); POTASSIUM 4.2 MMOL/L (3.5-5.1); SODIUM 135 MMOL/L (136-145)
[2017-05-15] MEDS ORDERED: NS 500ML IV ONE (09:45)
--- NOTE | 2017-05-15 09:46 | Pre-Procedure Note/Attestation ---
Pre-Procedure Note/Attestation Complete Prior to Procedure Planned Procedure: not applicable Procedure Narrative: egd Indications for Procedure Pre-Operative Diagnosis: gib Attestation I attest that I discussed the nature of the procedure; its benefits; risks and complications; and alternatives (and the risks and benefits of such alternatives ), prior to the procedure, with the patient (or the patient's legal sales and marketing representative). I attest that, if there was a reasonable possibility of needing a blood transfusion, the patient (or the patient's legal sales and marketing representative) was given the [facility] standardized written summary, pursuant to the [place]as Shannan Blood Safety Act ([place] Health and Safety Code # 1645, as amended). I attest that I re-evaluated the patient just prior to the surgery and that there has been no change in the patient's H&P, except as documented below: BREONNA ROSEN May 15, 2017 09:46
[2017-05-15] MEDS ORDERED: Propofol 200mg/20ml IV ONE (10:00)
[2017-05-15] MEDS ORDERED: Lidocaine 1% MPF 10mg/ml 5ml ONE (10:00)
[2017-05-15] MEDS ORDERED: Atropine Inj 1mg/10ml Syr IV PRN ×2 (10:15→17:00)
[2017-05-15] MEDS ORDERED: DiphenhydrAMINE 50mg/ml Inj IVP PRN ×2 (10:15→15:00)
[2017-05-15] MEDS ORDERED: Midazolam 2mg/2ml Inj IVP PRN ×2 (10:15→15:00)
[2017-05-15] MEDS ORDERED: fentaNYL 100 mcg/2 mL IV PRN ×2 (10:15→15:00)
--- NOTE | 2017-05-15 10:27 | Endoscopy Procedure Note ---
Endoscopy Procedure Note Indication for Procedure: gib Procedures Performed: EGD Operative Findings/Diagnosis: esophagitis Specimen: yes Pt Tolerated Procedure Well: Yes Estimated Blood Loss: none Anesthesiologist: jayne Anesthesia: MAC Implant(s) used?: No 50 yrs or older w/o bx or poly: Not Applicable 10yrs. F/U not recommended: Not Applicable BREONNA ROSEN May 15, 2017 10:27
--- NOTE | 2017-05-15 10:46 | Immediate Post-Op Evaluation ---
Immediate Post-Op Evalulation Immediate Post-Op Evalulation Procedure: egd Date of Evaluation: May 15, 2017 Time of Evaluation: 10:45 IV Fluids: 50ml 0.9ns Blood Products: none Estimated Blood Loss: negligible Blood Pressure Systolic: 140 Blood Pressure Diastolic: 76 Pulse Rate: 78 Respiratory Rate: 18 O2 Sat by Pulse Oximetry: 100 Temperature (Fahrenheit): 98.9 Pain Score (1-10): 0 Nausea: No Vomiting: No Complications none Patient Status: awake, reacts, patent Hydration Status: adequate Drug: JUDIE Lopez May 15, 2017 10:46
--- NOTE | 2017-05-15 10:48 | 48 Hour Post Anesthesia Eval ---
Post Anesthesia Evaluation Procedure: egd Date of Evaluation: May 15, 2017 Time of Evaluation: 10:48 Blood Pressure Systolic: 144 0: 77 Pulse Rate: 78 Respiratory Rate: 18 Temperature (Fahrenheit): 98.9 O2 Sat by Pulse Oximetry: 100 Airway: patent Nausea: No Vomiting: No Pain Intensity: 0 Hydration Status: adequate Cardiopulmonary Status: stable Mental Status/LOC: patient returned to baseline Post-Anesthesia Complications: none Follow-up care needed: N/A JUDIE LIU May 15, 2017 10:48
--- NOTE | 2017-05-15 12:01 | Pulmonology Progress Note ---
Assessment/Plan Problems: (1) Hemorrhagic shock (2) Upper GI bleed (3) CAD (coronary artery disease) (4) Stented coronary artery Assessment/Plan h/h stable upper endoscopy showed esophagitis symptomatic treatment f/u cardio recommendation start ant PLT treatment when safe. Subjective ROS Limited/Unobtainable: No Constitutional: Reports: no symptoms HEENT: Repors: no symptoms Respiratory: Reports: no symptoms Allergies: Coded Allergies: No Known Allergies (Unverified , 05/14/17) Objective Last 24 Hour Vital Signs Date Time Temp Pulse Resp B/P (MAP) Pulse Ox O2 Delivery O2 Flow Rate FiO2 05/15/17 11:48 97.3 05/15/17 11:00 97.3 66 15 139/77 96 Room Air 05/15/17 10:48 78 18 100 05/15/17 10:46 78 18 100 05/15/17 10:45 70 19 137/76 97 Room Air 05/15/17 10:40 69 14 138/75 100 Nasal Cannula 3.0 05/15/17 10:35 73 15 142/73 100 Nasal Cannula 3.0 05/15/17 10:33 98.9 78 18 140/76 100 Nasal Cannula 3.0 05/15/17 09:18 97.5 85 20 112/62 70 Room Air 05/15/17 08:00 96 05/15/17 04:05 84 05/15/17 04:00 96.4 80 20 140/73 96 Room Air 05/15/17 00:00 97.7 84 18 147/77 95 Room Air 05/14/17 23:55 88 05/14/17 20:00 98.2 92 20 146/71 93 Room Air 05/14/17 19:17 115 05/14/17 16:00 90 Intake and Output 05/15/17 05/16/17 19:00 07:00 Intake Total 50 ml Balance 50 ml IV Total 50 ml General Appearance: WD/WN HEENT: normocephalic, atraumatic Respiratory/Chest: chest wall non-tender, lungs clear Cardiovascular: normal peripheral pulses, regular rhythm Abdomen: normal bowel sounds, soft, non tender Genitourinary: normal external genitalia Extremities: no cyanosis, no clubbing Laboratory Tests 05/14/17 19:37: White Blood Count 10.6, Red Blood Count 3.17L, Hemoglobin 10.2L, Hematocrit 32.3L, Mean Corpuscular Volume 102H, Mean Corpuscular Hemoglobin 32.2H, Mean Corpuscular Hemoglobin Concent 31.6L, Red Cell Distribution Width 11.2L, Platelet Count 140L, Mean Platelet Volume 6.4L, Neutrophils (%) (Auto) 63.8, Lymphocytes (%) (Auto) 25.5, Monocytes (%) (Auto) 7.7, Eosinophils (%) (Auto) 2.4, Basophils (%) (Auto) 0.5 05/15/17 07:35: White Blood Count 10.1, Red Blood Count 3.32L, Hemoglobin 11.0L, Hematocrit 33.3L, Mean Corpuscular Volume 100H, Mean Corpuscular Hemoglobin 33.1H, Mean Corpuscular Hemoglobin Concent 33.1, Red Cell Distribution Width 11.2L, Platelet Count 161, Mean Platelet Volume 6.4L, Neutrophils (%) (Auto) 59.9, Lymphocytes (%) (Auto) 28.0, Monocytes (%) (Auto) 6.9, Eosinophils (%) (Auto) 4.2H, Basophils (%) (Auto) 1.0, Prothrombin Time 9.4, Prothromb Time International Ratio 0.9, Activated Partial Thromboplast Time 25, Sodium Level 135L, Potassium Level 4.2, Chloride Level 102, Carbon Dioxide Level 23, Anion Gap 10, Blood Urea Nitrogen 20H, Creatinine 1.1, Estimat Glomerular Filtration Rate , Glucose Level 141H, Calcium Level 8.8, Total Bilirubin 0.9, Aspartate Amino Transf (AST/SGOT) 34, Alanine Aminotransferase (ALT/SGPT) 44, Alkaline Phosphatase 61, Troponin I 0.011, Total Protein 8.0, Albumin 4.1, Globulin 3.9, Albumin/Globulin Ratio 1.1, Amylase Level 31, Lipase 36L Current Medications Medications (Trade) Dose Ordered Sig/Jay Route PRN Reason Start Time Stop Time Status Last Admin Dose Admin Acetaminophen (Tylenol) 650 mg Q4H PRN ORAL fever 05/14/17 14:45 06/13/17 14:44 Al Hydroxide/Mg Hydroxide (Mylanta II) 30 ml Q6H PRN ORAL dyspepsia 05/14/17 14:45 06/13/17 14:44 Al Hydroxide/Mg Hydroxide (Mylanta) 15 ml Q1H PRN ORAL gi upset 05/15/17 10:15 05/15/17 15:00 Atropine Sulfate (Atropine) 0.5 mg Q5M PRN IV bpm less than 45 05/15/17 10:15 05/15/17 15:00 Dextrose (Dextrose 50%) STAT PRN IV Hypoglycemia 05/14/17 14:45 06/13/17 14:44 Dextrose/Sodium Chloride 1,000 ml @ 100 mls/hr Q10H IV 05/14/17 15:00 06/13/17 14:59 05/15/17 05:39 Diphenhydramine HCl (Benadryl) 25 mg Q15M PRN IVP Itching 05/15/17 10:15 05/15/17 15:00 Diphenhydramine HCl (Benadryl) 25 mg Q6H PRN ORAL Itching/Pruritis 05/14/17 14:45 06/13/17 14:44 Fentanyl Citrate (Sublimaze 100 mcg/2 mL) 25 mcg Q10M PRN IV Moderate Pain (Pain Scale 4-6) 05/15/17 10:15 05/15/17 15:00 Hydralazine HCl (Apresoline) 5 mg Q30M PRN IV SBP>160 OR___/DBP>90 OR___ 05/15/17 10:15 05/15/17 15:00 Midazolam HCl (Versed 2mg/2ml vial) 1 mg Q15M PRN IVP For Anxiety 05/15/17 10:15 05/15/17 15:00 Morphine Sulfate (Morphine Sulfate) 4 mg Q4H PRN IVP For Pain 05/14/17 17:45 05/21/17 17:44 05/15/17 11:18 Morphine Sulfate (Morphine 5mg/ 2.5ml Oral Soln) 5 mg Q2H PRN ORAL For Severe Pain 05/14/17 13:00 06/13/17 12:59 05/14/17 13:07 Nitroglycerin (Ntg) 0.4 mg Q5M X 3 DOSES PRN SL Prn Chest Pain 05/14/17 14:45 06/13/17 14:44 Ondansetron HCl (Zofran) 4 mg Q1H PRN IVP Nausea & Vomiting 05/15/17 10:15 05/15/17 15:00 Ondansetron HCl (Zofran) 4 mg Q6H PRN IVP Nausea & Vomiting 05/14/17 13:00 06/13/17 12:59 Ondansetron HCl (Zofran) 4 mg Q6H PRN IVP Nausea & Vomiting 05/14/17 14:45 06/13/17 14:44 Pantoprazole (Protonix) 40 mg EVERY 12 HOURS IVP 05/14/17 21:00 06/13/17 20:59 05/15/17 08:05 Polyethylene Glycol (Miralax) 17 gm HSPRN PRN ORAL Constipation 05/14/17 14:45 06/13/17 14:44 Sodium Chloride 1,000 ml @ 10 mls/hr Q24H IVLG 05/15/17 10:02 05/15/17 12:01 05/15/17 11:19 Temazepam (Restoril) 15 mg HSPRN PRN ORAL Insomnia 05/14/17 14:45 05/21/17 14:44 MARTA ZALDIVAR May 15, 2017 12:01
[2017-05-15] MEDS ORDERED: Nitroglycerin Subl 0.4mg tab SL PRN (15:00)
[2017-05-15] MEDS ORDERED: Morphine 5mg/2.5ml Oral Soln ORAL PRN (15:00)
[2017-05-15] MEDS ORDERED: Mylanta II UD 30ml ORAL PRN (17:00)
--- NOTE | 2017-05-15 17:28 | Cardiology Progress Note ---
Assessment/Plan Assessment/Plan 1. Coronary artery disease [place] [id number] (see reprot in phyisical chart) 2. Coffee-ground emesis. 3. Alcoholism possible. 4. History of tobacco use disorder. egd showed gastritis hgb stable restart dapt as discussed with dr grigsby felt tob eat acceptable risk Subjective Cardiovascular: Denies: chest pain, lightheadedness, palpitations Respiratory: Denies: shortness of breath Objective Last 24 Hour Vital Signs Date Time Temp Pulse Resp B/P (MAP) Pulse Ox O2 Delivery O2 Flow Rate FiO2 05/15/17 16:00 98.5 80 20 156/70 97 Room Air 05/15/17 11:48 97.3 05/15/17 11:00 97.3 66 15 139/77 96 Room Air 05/15/17 10:48 78 18 100 05/15/17 10:46 78 18 100 05/15/17 10:45 70 19 137/76 97 Room Air 05/15/17 10:40 69 14 138/75 100 Nasal Cannula 3.0 05/15/17 10:35 73 15 142/73 100 Nasal Cannula 3.0 05/15/17 10:33 98.9 78 18 140/76 100 Nasal Cannula 3.0 05/15/17 09:18 97.5 85 20 112/62 70 Room Air 05/15/17 08:00 96 05/15/17 04:05 84 05/15/17 04:00 96.4 80 20 140/73 96 Room Air 05/15/17 00:00 97.7 84 18 147/77 95 Room Air 05/14/17 23:55 88 05/14/17 20:00 98.2 92 20 146/71 93 Room Air 05/14/17 19:17 115 General Appearance: no apparent distress, alert Neck: normal alignment, supple Cardiovascular: normal rate, regular rhythm Respiratory/Chest: lungs clear, normal breath sounds Abdomen: normal bowel sounds, non tender, soft Extremities: no swelling Intake and Output 05/15/17 05/16/17 19:00 07:00 Intake Total 50 ml Balance 50 ml IV Total 50 ml # Voids 1 Laboratory Tests Test 05/14/17 19:37 05/15/17 07:35 White Blood Count 10.6 K/UL (4.8-10.8) 10.1 K/UL (4.8-10.8) Red Blood Count 3.17 M/UL (4.70-6.10) L 3.32 M/UL (4.70-6.10) L Hemoglobin 10.2 G/DL (14.2-18.0) L 11.0 G/DL (14.2-18.0) L Hematocrit 32.3 % (42.0-52.0) L 33.3 % (42.0-52.0) L Mean Corpuscular Volume 102 FL (80-99) H 100 FL (80-99) H Mean Corpuscular Hemoglobin 32.2 PG (27.0-31.0) H 33.1 PG (27.0-31.0) H Mean Corpuscular Hemoglobin Concent 31.6 G/DL (32.0-36.0) L 33.1 G/DL (32.0-36.0) Red Cell Distribution Width 11.2 % (11.6-14.8) L 11.2 % (11.6-14.8) L Platelet Count 140 K/UL (150-450) L 161 K/UL (150-450) Mean Platelet Volume 6.4 FL (6.5-10.1) L 6.4 FL (6.5-10.1) L Neutrophils (%) (Auto) 63.8 % (45.0-75.0) 59.9 % (45.0-75.0) Lymphocytes (%) (Auto) 25.5 % (20.0-45.0) 28.0 % (20.0-45.0) Monocytes (%) (Auto) 7.7 % (1.0-10.0) 6.9 % (1.0-10.0) Eosinophils (%) (Auto) 2.4 % (0.0-3.0) 4.2 % (0.0-3.0) H Basophils (%) (Auto) 0.5 % (0.0-2.0) 1.0 % (0.0-2.0) Prothrombin Time 9.4 SEC (9.30-11.50) Prothromb Time International Ratio 0.9 (0.9-1.1) Activated Partial Thromboplast Time 25 SEC (23-33) Sodium Level 135 MMOL/L (136-145) L Potassium Level 4.2 MMOL/L (3.5-5.1) Chloride Level 102 MMOL/L (98-107) Carbon Dioxide Level 23 MMOL/L (21-32) Anion Gap 10 mmol/L (5-15) Blood Urea Nitrogen 20 mg/dL (7-18) H Creatinine 1.1 MG/DL (0.55-1.30) Estimat Glomerular Filtration Rate mL/min (>60) Glucose Level 141 MG/DL (74-106) H Calcium Level 8.8 MG/DL (8.5-10.1) Total Bilirubin 0.9 MG/DL (0.2-1.0) Aspartate Amino Transf (AST/SGOT) 34 U/L (15-37) Alanine Aminotransferase (ALT/SGPT) 44 U/L (12-78) Alkaline Phosphatase 61 U/L (46-116) Troponin I 0.011 ng/mL (0.000-0.056) Total Protein 8.0 G/DL (6.4-8.2) Albumin 4.1 G/DL (3.4-5.0) Globulin 3.9 g/dL Albumin/Globulin Ratio 1.1 (1.0-2.7) Amylase Level 31 U/L (25-115) Lipase 36 U/L (73-393) L RAKESH MCNAMARA May 15, 2017 17:28
[2017-05-15] MEDS ORDERED: Morphine Sulfate 4mg/ml Inj IVP PRN (17:45)
--- NOTE | 2017-05-15 18:00 | Procedure Note ---
DATE OF PROCEDURE: 05/15/2017 SURGEON: Sumanth Cobb M.D. PROCEDURE: Upper endoscopy with biopsy. ANESTHESIA: Per Dr. Schmitz. INSTRUMENT: Olympus adult flexible upper endoscope. INDICATION: Upper GI bleeding. The procedure, risks, benefits, and possible consequences, including hemorrhage, aspiration, perforation and infection, and alternative treatments, were explained to the patient/legal guardian by Dr. Sumanth Cobb and the patient/legal guardian understood and accepted these risks. DESCRIPTION OF PROCEDURE: After informed consent was obtained and the patient was adequately sedated, Olympus upper endoscope was advanced from mouth into the second portion of the duodenum and retroflexion was performed in the stomach. The patient has minimum distal esophagitis, which was biopsied. In the stomach, there was diffuse gastritis. Random biopsy from antrum and body was obtained to rule out H. pylori infection. The patient tolerated the procedure very well without any complication. SUMMARY OF FINDINGS: 1. Distal esophagitis, minimum. 2. Diffuse gastritis. RECOMMENDATIONS: Follow up biopsies and treat accordingly. I want to thank Dr. Ty Wu for this kind referral. Sumanth Cobb M.D. DR: ELAINE JOB#: [id number] CC: Ty Wu M.D.; Fax#: [phone]
[2017-05-15] MEDS: Aspirin Baby 81mg ORAL SCH (18:02)
--- NOTE | 2017-05-15 22:45 | Internal Med Progress Note ---
Subjective Physician Name Ty Wu Attending Physician Ty Wu MD Current Medications Medications (Trade) Dose Ordered Sig/Jay Route PRN Reason Start Time Stop Time Status Last Admin Dose Admin Acetaminophen (Tylenol) 650 mg Q4H PRN ORAL fever 05/15/17 17:00 06/13/17 16:59 Al Hydroxide/Mg Hydroxide (Mylanta II) 30 ml Q6H PRN ORAL dyspepsia 05/15/17 17:00 06/13/17 16:59 Aspirin (ASA) 81 mg DAILY ORAL 05/15/17 18:15 06/14/17 18:14 05/15/17 18:02 Clopidogrel Bisulfate (Plavix) 75 mg DAILY ORAL 05/15/17 18:15 06/14/17 18:14 05/15/17 18:02 Dextrose (Dextrose 50%) STAT PRN IV Hypoglycemia 05/15/17 17:00 06/14/17 16:59 Dextrose/Sodium Chloride 1,000 ml @ 100 mls/hr Q10H IV 05/15/17 17:00 06/13/17 16:59 05/15/17 17:06 Diphenhydramine HCl (Benadryl) 25 mg Q6H PRN ORAL Itching/Pruritis 05/15/17 17:00 06/13/17 16:59 Morphine Sulfate (Morphine Sulfate) 4 mg Q4H PRN IVP Severe Pain if unable to charis 05/15/17 17:15 05/22/17 17:14 05/15/17 21:27 Morphine Sulfate (Morphine 5mg/ 2.5ml Oral Soln) 5 mg Q2H PRN ORAL For Severe Pain 05/15/17 15:00 06/13/17 12:59 Nitroglycerin (Ntg) 0.4 mg Q5M X 3 DOSES PRN SL Prn Chest Pain 05/15/17 15:00 06/13/17 14:44 Ondansetron HCl (Zofran) 4 mg Q6H PRN IVP Nausea & Vomiting 05/15/17 17:00 06/13/17 16:59 Pantoprazole (Protonix) 40 mg EVERY 12 HOURS IVP 05/15/17 21:00 06/13/17 20:59 05/15/17 21:24 Polyethylene Glycol (Miralax) 17 gm HSPRN PRN ORAL Constipation 05/16/17 17:00 06/13/17 16:59 Temazepam (Restoril) 15 mg HSPRN PRN ORAL Insomnia 05/15/17 17:00 05/22/17 16:59 Allergies: Coded Allergies: No Known Allergies (Unverified , 05/14/17) Subjective awake, alert, responsive, at bedside Objective Last Vital Signs Date Time Temp Pulse Resp B/P (MAP) Pulse Ox O2 Delivery O2 Flow Rate FiO2 05/15/17 21:57 98.5 05/15/17 20:00 89 19 149/67 94 Room Air 05/15/17 10:40 3.0 Laboratory Tests Test 05/15/17 07:35 White Blood Count 10.1 K/UL (4.8-10.8) Red Blood Count 3.32 M/UL (4.70-6.10) L Hemoglobin 11.0 G/DL (14.2-18.0) L Hematocrit 33.3 % (42.0-52.0) L Mean Corpuscular Volume 100 FL (80-99) H Mean Corpuscular Hemoglobin 33.1 PG (27.0-31.0) H Mean Corpuscular Hemoglobin Concent 33.1 G/DL (32.0-36.0) Red Cell Distribution Width 11.2 % (11.6-14.8) L Platelet Count 161 K/UL (150-450) Mean Platelet Volume 6.4 FL (6.5-10.1) L Neutrophils (%) (Auto) 59.9 % (45.0-75.0) Lymphocytes (%) (Auto) 28.0 % (20.0-45.0) Monocytes (%) (Auto) 6.9 % (1.0-10.0) Eosinophils (%) (Auto) 4.2 % (0.0-3.0) H Basophils (%) (Auto) 1.0 % (0.0-2.0) Prothrombin Time 9.4 SEC (9.30-11.50) Prothromb Time International Ratio 0.9 (0.9-1.1) Activated Partial Thromboplast Time 25 SEC (23-33) Sodium Level 135 MMOL/L (136-145) L Potassium Level 4.2 MMOL/L (3.5-5.1) Chloride Level 102 MMOL/L (98-107) Carbon Dioxide Level 23 MMOL/L (21-32) Anion Gap 10 mmol/L (5-15) Blood Urea Nitrogen 20 mg/dL (7-18) H Creatinine 1.1 MG/DL (0.55-1.30) Estimat Glomerular Filtration Rate mL/min (>60) Glucose Level 141 MG/DL (74-106) H Calcium Level 8.8 MG/DL (8.5-10.1) Total Bilirubin 0.9 MG/DL (0.2-1.0) Aspartate Amino Transf (AST/SGOT) 34 U/L (15-37) Alanine Aminotransferase (ALT/SGPT) 44 U/L (12-78) Alkaline Phosphatase 61 U/L (46-116) Troponin I 0.011 ng/mL (0.000-0.056) Total Protein 8.0 G/DL (6.4-8.2) Albumin 4.1 G/DL (3.4-5.0) Globulin 3.9 g/dL Albumin/Globulin Ratio 1.1 (1.0-2.7) Amylase Level 31 U/L (25-115) Lipase 36 U/L (73-393) L Intake and Output 05/15/17 05/16/17 19:00 07:00 Intake Total 490 ml Output Total 300 ml Balance 190 ml Intake Oral 240 ml IV Total 250 ml Output Urine Total 300 ml # Voids 3 Objective General: No acute distress, awake and alert HEENT: NCAT, sclera anicteric, PERRL, EOMI. Neck: Supple, no significant jugular venous distention, Lungs: Good inspiratory effort, clear to auscultation bilaterally, no Wheeze or Rales. Heart: Regular rate and rhythm, normal S1/S2, no murmur Abdomen: soft, nontender, nondistended. Normoactive bowel sounds. / Rectal: Refused and deferred. Extremities: No Cyanosis , clubbing or edema. Neuro: A&O x 3, Able to move all extremities Skin: warm, no rashes or lesions Psych: Normal mood and affect Assessment/Plan Assessment/Plan 1. Coronary artery disease status post coronary artery stent 2. Coffee-ground emesis most likely due to esophagitis. 3. Alcoholism 4. History of tobacco use disorder. Plan: S/P EGD today Monitor labs discuss with patient and at bedside extensively with regard to alcohol abuse DC Planning soon Dc Telemetry Ty Wu MD May 15, 2017 22:45
[2017-05-16] VITALS: BP 140/80
[2017-05-16] MEDS: Morphine Sulfate 4mg/ml Inj IVP PRN ×3 (01:59→12:20)
[2017-05-16] MEDS: D5NS 1,000 ML IV SCH (01:59)
[2017-05-16 04:00] VITALS: BP 143/81
[2017-05-16 07:35] LABS: INR 0.9 (0.9-1.1); PROTHROMBIN TIME 9.4 SEC (9.30-11.50)
[2017-05-16 07:46] LABS: BASOPHILS % (AUTO) 0.5 % (0.0-2.0); EOSINOPHILS % (AUTO) 5.3 % (0.0-3.0); LYMPHOCYTES % (AUTO) 24.9 % (20.0-45.0); MEAN CORPUSCULAR HEMOGLOBIN 34.6 PG (27.0-31.0); MEAN CORPUSCULAR HGB CONC 34.7 G/DL (32.0-36.0); MEAN CORPUSCULAR VOLUME 100 FL (80-99); MEAN PLATELET VOLUME 7.1 FL (6.5-10.1); MONOCYTES % (AUTO) 8.5 % (1.0-10.0); NEUTROPHILS % (AUTO) 60.8 % (45.0-75.0); PLATELET COUNT 122 K/UL (150-450); RED BLOOD COUNT 2.95 M/UL (4.70-6.10); RED CELL DISTRIBUTION WIDTH 11.3 % (11.6-14.8); WHITE BLOOD COUNT 8.4 K/UL (4.8-10.8)
[2017-05-16 07:52] LABS: ALANINE AMINOTRANSFERASE 37 U/L (12-78); ANION GAP 8 mmol/L (5-15); ASPARTATE AMINO TRANSFERASE 29 U/L (15-37); CALCIUM 8.5 MG/DL (8.5-10.1); CARBON DIOXIDE 25 MMOL/L (21-32); CHLORIDE 102 MMOL/L (98-107); CREATININE 1.1 MG/DL (0.55-1.30); POTASSIUM 3.8 MMOL/L (3.5-5.1); SODIUM 135 MMOL/L (136-145); TOTAL PROTEIN 7.3 G/DL (6.4-8.2)
[2017-05-16 07:53] LABS: MAGNESIUM 1.9 MG/DL (1.8-2.4); PHOSPHORUS 2.4 MG/DL (2.5-4.9)
[2017-05-16 08:00] VITALS: BP 134/64
[2017-05-16] MEDS: Pantoprazole Inj IVP SCH ×2 (08:24→21:06)
[2017-05-16] MEDS: Aspirin Baby 81mg ORAL SCH (08:24)
--- NOTE | 2017-05-16 08:25 | Pulmonology Progress Note ---
Assessment/Plan Problems: (1) Hemorrhagic shock (2) Upper GI bleed (3) CAD (coronary artery disease) (4) Stented coronary artery Assessment/Plan h/h stable upper endoscopy showed esophagitis symptomatic treatment f/u cardio recommendation back on aspirine and Plavix dc home when pain in Left shoulder is controlled Subjective ROS Limited/Unobtainable: No Constitutional: Reports: no symptoms HEENT: Repors: no symptoms Respiratory: Reports: no symptoms Allergies: Coded Allergies: No Known Allergies (Unverified , 05/14/17) Objective Last 24 Hour Vital Signs Date Time Temp Pulse Resp B/P (MAP) Pulse Ox O2 Delivery O2 Flow Rate FiO2 05/16/17 04:00 97.9 84 19 143/81 96 Room Air 05/16/17 00:00 97.9 85 18 140/80 95 Room Air 05/15/17 21:57 98.5 05/15/17 20:00 97.6 89 19 149/67 94 Room Air 05/15/17 16:00 98.5 80 20 156/70 97 Room Air 05/15/17 11:48 97.3 05/15/17 11:00 97.3 66 15 139/77 96 Room Air 05/15/17 10:48 78 18 100 05/15/17 10:46 78 18 100 05/15/17 10:45 70 19 137/76 97 Room Air 05/15/17 10:40 69 14 138/75 100 Nasal Cannula 3.0 05/15/17 10:35 73 15 142/73 100 Nasal Cannula 3.0 05/15/17 10:33 98.9 78 18 140/76 100 Nasal Cannula 3.0 05/15/17 09:18 97.5 85 20 112/62 70 Room Air General Appearance: WD/WN HEENT: atraumatic, anicteric Respiratory/Chest: chest wall non-tender, lungs clear Abdomen: normal bowel sounds, soft, non tender Genitourinary: normal external genitalia Extremities: no cyanosis Skin: no rash 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 Lymphatic: no neck adenopathy Laboratory Tests 05/16/17 06:18: White Blood Count 8.4, Red Blood Count 2.95L, Hemoglobin 10.2L, Hematocrit 29.4L , Mean Corpuscular Volume 100H, Mean Corpuscular Hemoglobin 34.6H, Mean Corpuscular Hemoglobin Concent 34.7, Red Cell Distribution Width 11.3L, Platelet Count 122L, Mean Platelet Volume 7.1, Neutrophils (%) (Auto) 60.8, Lymphocytes (%) (Auto) 24.9, Monocytes (%) (Auto) 8.5, Eosinophils (%) (Auto) 5.3H, Basophils (%) (Auto) 0.5, Prothrombin Time 9.4, Prothromb Time International Ratio 0.9, Activated Partial Thromboplast Time 25, Sodium Level 135L, Potassium Level 3.8, Chloride Level 102, Carbon Dioxide Level 25, Anion Gap 8, Blood Urea Nitrogen 13, Creatinine 1.1, Estimat Glomerular Filtration Rate , Glucose Level 125H, Calcium Level 8.5, Phosphorus Level 2.4L, Magnesium Level 1.9, Total Bilirubin 0.7, Aspartate Amino Transf (AST/SGOT) 29, Alanine Aminotransferase (ALT/SGPT) 37, Alkaline Phosphatase 54, Total Protein 7.3, Albumin 3.6, Globulin 3.7, Albumin/Globulin Ratio 1.0 Current Medications Medications (Trade) Dose Ordered Sig/Jay Route PRN Reason Start Time Stop Time Status Last Admin Dose Admin Acetaminophen (Tylenol) 650 mg Q4H PRN ORAL fever 05/15/17 17:00 06/13/17 16:59 Al Hydroxide/Mg Hydroxide (Mylanta II) 30 ml Q6H PRN ORAL dyspepsia 05/15/17 17:00 06/13/17 16:59 Aspirin (ASA) 81 mg DAILY ORAL 05/15/17 18:15 06/14/17 18:14 05/15/17 18:02 Clopidogrel Bisulfate (Plavix) 75 mg DAILY ORAL 05/15/17 18:15 06/14/17 18:14 05/15/17 18:02 Dextrose (Dextrose 50%) STAT PRN IV Hypoglycemia 05/15/17 17:00 06/14/17 16:59 Dextrose/Sodium Chloride 1,000 ml @ 100 mls/hr Q10H IV 05/15/17 17:00 06/13/17 16:59 05/16/17 01:59 Diphenhydramine HCl (Benadryl) 25 mg Q6H PRN ORAL Itching/Pruritis 05/15/17 17:00 06/13/17 16:59 Morphine Sulfate (Morphine Sulfate) 4 mg Q4H PRN IVP Severe Pain if unable to charis 05/15/17 17:15 05/22/17 17:14 05/16/17 01:59 Morphine Sulfate (Morphine 5mg/ 2.5ml Oral Soln) 5 mg Q2H PRN ORAL For Severe Pain 05/15/17 15:00 06/13/17 12:59 Nitroglycerin (Ntg) 0.4 mg Q5M X 3 DOSES PRN SL Prn Chest Pain 05/15/17 15:00 06/13/17 14:44 Ondansetron HCl (Zofran) 4 mg Q6H PRN IVP Nausea & Vomiting 05/15/17 17:00 06/13/17 16:59 Pantoprazole (Protonix) 40 mg EVERY 12 HOURS IVP 05/15/17 21:00 06/13/17 20:59 05/15/17 21:24 Polyethylene Glycol (Miralax) 17 gm HSPRN PRN ORAL Constipation 05/16/17 17:00 06/13/17 16:59 Temazepam (Restoril) 15 mg HSPRN PRN ORAL Insomnia 05/15/17 17:00 05/22/17 16:59 MARTA ZALDIVAR May 16, 2017 08:25
--- NOTE | 2017-05-16 09:55 | General Progress Note ---
Assessment/Plan Problem List: (1) Stented coronary artery ICD Codes: Z95.5 - Presence of coronary angioplasty implant and graft SNOMED: 95989580, 951023198 (2) Hematemesis ICD Codes: K92.0 - Hematemesis SNOMED: 9425879 Qualifiers: Qualified Codes: K92.0 - Hematemesis (3) Coffee ground emesis ICD Codes: K92.0 - Hematemesis SNOMED: 881831718, 46937611 Assessment/Plan s/p EGD without obvious GIB needs out patient colonoscopy fu H&H fu cardiology Subjective ROS Limited/Unobtainable: Yes Allergies: Coded Allergies: No Known Allergies (Unverified , 05/14/17) Subjective no c/o Objective Last 24 Hour Vital Signs Date Time Temp Pulse Resp B/P (MAP) Pulse Ox O2 Delivery O2 Flow Rate FiO2 05/16/17 04:00 97.9 84 19 143/81 96 Room Air 05/16/17 00:00 97.9 85 18 140/80 95 Room Air 05/15/17 21:57 98.5 05/15/17 20:00 97.6 89 19 149/67 94 Room Air 05/15/17 16:00 98.5 80 20 156/70 97 Room Air 05/15/17 11:48 97.3 05/15/17 11:00 97.3 66 15 139/77 96 Room Air 05/15/17 10:48 78 18 100 05/15/17 10:46 78 18 100 05/15/17 10:45 70 19 137/76 97 Room Air 05/15/17 10:40 69 14 138/75 100 Nasal Cannula 3.0 05/15/17 10:35 73 15 142/73 100 Nasal Cannula 3.0 05/15/17 10:33 98.9 78 18 140/76 100 Nasal Cannula 3.0 Laboratory Tests 05/16/17 06:18: White Blood Count 8.4, Red Blood Count 2.95L, Hemoglobin 10.2L, Hematocrit 29.4L , Mean Corpuscular Volume 100H, Mean Corpuscular Hemoglobin 34.6H, Mean Corpuscular Hemoglobin Concent 34.7, Red Cell Distribution Width 11.3L, Platelet Count 122L, Mean Platelet Volume 7.1, Neutrophils (%) (Auto) 60.8, Lymphocytes (%) (Auto) 24.9, Monocytes (%) (Auto) 8.5, Eosinophils (%) (Auto) 5.3H, Basophils (%) (Auto) 0.5, Prothrombin Time 9.4, Prothromb Time International Ratio 0.9, Activated Partial Thromboplast Time 25, Sodium Level 135L, Potassium Level 3.8, Chloride Level 102, Carbon Dioxide Level 25, Anion Gap 8, Blood Urea Nitrogen 13, Creatinine 1.1, Estimat Glomerular Filtration Rate , Glucose Level 125H, Calcium Level 8.5, Phosphorus Level 2.4L, Magnesium Level 1.9, Total Bilirubin 0.7, Aspartate Amino Transf (AST/SGOT) 29, Alanine Aminotransferase (ALT/SGPT) 37, Alkaline Phosphatase 54, Total Protein 7.3, Albumin 3.6, Globulin 3.7, Albumin/Globulin Ratio 1.0 Height (Feet): 5 Height (Inches): 5.00 Weight (Pounds): 140 General Appearance: alert EENT: normal ENT inspection Neck: supple Cardiovascular: normal rate Respiratory/Chest: decreased breath sounds Abdomen: normal bowel sounds, non tender, soft Extremities: non-tender BREONNA ROSEN May 16, 2017 09:55
[2017-05-16 12:00] VITALS: BP 155/71
--- NOTE | 2017-05-16 14:48 | Internal Med Progress Note ---
Subjective Date of Service: May 16, 2017 Physician Name CameronAyleen Attending Physician Ty Wu MD Current Medications Medications (Trade) Dose Ordered Sig/Jay Route PRN Reason Start Time Stop Time Status Last Admin Dose Admin Acetaminophen (Tylenol) 650 mg Q4H PRN ORAL fever 05/15/17 17:00 06/13/17 16:59 Al Hydroxide/Mg Hydroxide (Mylanta II) 30 ml Q6H PRN ORAL dyspepsia 05/15/17 17:00 06/13/17 16:59 Aspirin (ASA) 81 mg DAILY ORAL 05/15/17 18:15 06/14/17 18:14 05/16/17 08:24 Clopidogrel Bisulfate (Plavix) 75 mg DAILY ORAL 05/15/17 18:15 06/14/17 18:14 05/16/17 08:24 Dextrose (Dextrose 50%) STAT PRN IV Hypoglycemia 05/15/17 17:00 06/14/17 16:59 Diphenhydramine HCl (Benadryl) 25 mg Q6H PRN ORAL Itching/Pruritis 05/15/17 17:00 06/13/17 16:59 Morphine Sulfate (Morphine Sulfate) 4 mg Q4H PRN IVP Severe Pain if unable to charis 05/15/17 17:15 05/22/17 17:14 05/16/17 12:20 Morphine Sulfate (Morphine 5mg/ 2.5ml Oral Soln) 5 mg Q2H PRN ORAL For Severe Pain 05/15/17 15:00 06/13/17 12:59 Nitroglycerin (Ntg) 0.4 mg Q5M X 3 DOSES PRN SL Prn Chest Pain 05/15/17 15:00 06/13/17 14:44 Ondansetron HCl (Zofran) 4 mg Q6H PRN IVP Nausea & Vomiting 05/15/17 17:00 06/13/17 16:59 Pantoprazole (Protonix) 40 mg EVERY 12 HOURS IVP 05/15/17 21:00 06/13/17 20:59 05/16/17 08:24 Polyethylene Glycol (Miralax) 17 gm HSPRN PRN ORAL Constipation 05/16/17 17:00 06/13/17 16:59 Temazepam (Restoril) 15 mg HSPRN PRN ORAL Insomnia 05/15/17 17:00 05/22/17 16:59 Allergies: Coded Allergies: No Known Allergies (Unverified , 05/14/17) ROS Limited/Unobtainable: No Constitutional: Reports: no symptoms HEENT: Reports: no symptoms Cardiovascular: Reports: no symptoms Respiratory: Reports: no symptoms Gastrointestinal/Abdominal: Reports: no symptoms Genitourinary: Reports: no symptoms Neurologic/Psychiatric: Reports: no symptoms Subjective 76 YO M admitted with hematemesis. S/P endoscopy 05/15/17. Cover for Int Med- Dr Wu Objective Last Vital Signs Date Time Temp Pulse Resp B/P (MAP) Pulse Ox O2 Delivery O2 Flow Rate FiO2 05/16/17 08:00 98.1 97 18 134/64 95 Room Air 05/15/17 10:40 3.0 General Appearance: WD/WN, no apparent distress, alert EENT: PERRL/EOMI, normal ENT inspection, TMs normal Neck: non-tender, normal alignment, supple, normal inspection Cardiovascular: normal peripheral pulses, normal rate, regular rhythm, no gallop/murmur, no JVD Respiratory/Chest: chest wall non-tender, lungs clear, normal breath sounds, no respiratory distress, no accessory muscle use Abdomen: soft, no organomegaly, no mass, decreased bowel sounds, tender Extremities: normal range of motion, non-tender 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0) Monocytes (%) (Auto) 8.5 % (1.0-10.0) Eosinophils (%) (Auto) 5.3 % (0.0-3.0) H Basophils (%) (Auto) 0.5 % (0.0-2.0) Prothrombin Time 9.4 SEC (9.30-11.50) Prothromb Time International Ratio 0.9 (0.9-1.1) Activated Partial Thromboplast Time 25 SEC (23-33) Sodium Level 135 MMOL/L (136-145) L Potassium Level 3.8 MMOL/L (3.5-5.1) Chloride Level 102 MMOL/L (98-107) Carbon Dioxide Level 25 MMOL/L (21-32) Anion Gap 8 mmol/L (5-15) Blood Urea Nitrogen 13 mg/dL (7-18) Creatinine 1.1 MG/DL (0.55-1.30) Estimat Glomerular Filtration Rate mL/min (>60) Glucose Level 125 MG/DL (74-106) H Calcium Level 8.5 MG/DL (8.5-10.1) Phosphorus Level 2.4 MG/DL (2.5-4.9) L Magnesium Level 1.9 MG/DL (1.8-2.4) Total Bilirubin 0.7 MG/DL (0.2-1.0) Aspartate Amino Transf (AST/SGOT) 29 U/L (15-37) Alanine Aminotransferase (ALT/SGPT) 37 U/L (12-78) Alkaline Phosphatase 54 U/L (46-116) Total Protein 7.3 G/DL (6.4-8.2) Albumin 3.6 G/DL (3.4-5.0) Globulin 3.7 g/dL Albumin/Globulin Ratio 1.0 (1.0-2.7) Intake and Output 05/16/17 05/17/17 19:00 07:00 Intake Total 400 ml Balance 400 ml IV Total 400 ml Assessment/Plan Problem List: (1) Esophagitis Assessment & Plan: Continue protonix (2) Hematemesis (3) Upper GI bleed Assessment & Plan: S/P endoscopy-esophagitis. No clear source of bleeding. Will require OP colonoscopy-see GI note. (4) CAD (coronary artery disease) Assessment & Plan: Restart plavix and ASA per cardiology Status: not improved AYLEEN CAMERON May 16, 2017 14:48
--- NOTE | 2017-05-16 15:39 | Cardiology Progress Note ---
Assessment/Plan Status: stable, progressing Status Narrative Mr Farah is s/p LAD PCI / MARK ANTHONY in 02/2017. He has no angina or chf He was adm w/ ugi bleed/ coffee ground emesis,and egd showed gastritis. Assessment/Plan H/H has dropped slightly today, but there is no overt gi bleeding. Continue dual antiplt rx for now, for recent MARK ANTHONY placement. followup h/h in am Analgesics prn for R shoulder pain, noncardiac, likely musculoskeletal Subjective ROS Limited/Unobtainable: No Subjective Cardiology for Dr. Brand Mr. Farah complains of R shoulder pain. States it is muscle pain. No CP, abd pain Objective Last 24 Hour Vital Signs Date Time Temp Pulse Resp B/P (MAP) Pulse Ox O2 Delivery O2 Flow Rate FiO2 05/16/17 08:00 98.1 97 18 134/64 95 Room Air 05/16/17 04:00 97.9 84 19 143/81 96 Room Air 05/16/17 00:00 97.9 85 18 140/80 95 Room Air 05/15/17 21:57 98.5 05/15/17 20:00 97.6 89 19 149/67 94 Room Air 05/15/17 16:00 98.5 80 20 156/70 97 Room Air General Appearance: WD/WN, no apparent distress, alert EENT: PERRL/EOMI Neck: supple, no JVD Rhythm: NSR Cardiovascular: normal rate, regularly irregular, no gallop/murmur Respiratory/Chest: lungs clear Abdomen: non tender, soft, no mass Extremities: non-tender, no swelling Intake and Output 05/16/17 05/17/17 19:00 07:00 Intake Total 400 ml Balance 400 ml IV Total 400 ml Laboratory Tests Test 05/16/17 06:18 White Blood Count 8.4 K/UL (4.8-10.8) Red Blood Count 2.95 M/UL (4.70-6.10) L Hemoglobin 10.2 G/DL (14.2-18.0) L Hematocrit 29.4 % (42.0-52.0) L Mean Corpuscular Volume 100 FL (80-99) H Mean Corpuscular Hemoglobin 34.6 PG (27.0-31.0) H Mean Corpuscular Hemoglobin Concent 34.7 G/DL (32.0-36.0) Red Cell Distribution Width 11.3 % (11.6-14.8) L Platelet Count 122 K/UL (150-450) L Mean Platelet Volume 7.1 FL (6.5-10.1) Neutrophils (%) (Auto) 60.8 % (45.0-75.0) Lymphocytes (%) (Auto) 24.9 % (20.0-45.0) Monocytes (%) (Auto) 8.5 % (1.0-10.0) Eosinophils (%) (Auto) 5.3 % (0.0-3.0) H Basophils (%) (Auto) 0.5 % (0.0-2.0) Prothrombin Time 9.4 SEC (9.30-11.50) Prothromb Time International Ratio 0.9 (0.9-1.1) Activated Partial Thromboplast Time 25 SEC (23-33) Sodium Level 135 MMOL/L (136-145) L Potassium Level 3.8 MMOL/L (3.5-5.1) Chloride Level 102 MMOL/L (98-107) Carbon Dioxide Level 25 MMOL/L (21-32) Anion Gap 8 mmol/L (5-15) Blood Urea Nitrogen 13 mg/dL (7-18) Creatinine 1.1 MG/DL (0.55-1.30) Estimat Glomerular Filtration Rate mL/min (>60) Glucose Level 125 MG/DL (74-106) H Calcium Level 8.5 MG/DL (8.5-10.1) Phosphorus Level 2.4 MG/DL (2.5-4.9) L Magnesium Level 1.9 MG/DL (1.8-2.4) Total Bilirubin 0.7 MG/DL (0.2-1.0) Aspartate Amino Transf (AST/SGOT) 29 U/L (15-37) Alanine Aminotransferase (ALT/SGPT) 37 U/L (12-78) Alkaline Phosphatase 54 U/L (46-116) Total Protein 7.3 G/DL (6.4-8.2) Albumin 3.6 G/DL (3.4-5.0) Globulin 3.7 g/dL Albumin/Globulin Ratio 1.0 (1.0-2.7) CRISPIN GAY May 16, 2017 15:39
[2017-05-16] MEDS ORDERED: Miralax 17gm pkt ORAL PRN (17:00)
[2017-05-16] MEDS: Norco 10mg/325mg tab ORAL PRN ×2 (17:27→21:08)
[2017-05-16 18:27] VITALS: BP 138/69
[2017-05-16 20:00] VITALS: BP 138/72
[2017-05-17 00:39] VITALS: BP 134/68
[2017-05-17] MEDS: Norco 10mg/325mg tab ORAL PRN ×5 (01:31→22:58)
[2017-05-17 04:47] VITALS: BP 134/65
--- NOTE | 2017-05-17 06:48 | General Progress Note ---
Assessment/Plan Problem List: (1) Stented coronary artery ICD Codes: Z95.5 - Presence of coronary angioplasty implant and graft SNOMED: 62682078, 344206816 (2) Hematemesis ICD Codes: K92.0 - Hematemesis SNOMED: 3583720 Qualifiers: Qualified Codes: K92.0 - Hematemesis (3) Coffee ground emesis ICD Codes: K92.0 - Hematemesis SNOMED: 099993227, [id number] Assessment/Plan s/p EGD without obvious GIB needs out patient colonoscopy fu H&H fu stool ob change protonix to po daily fu cardiology Subjective ROS Limited/Unobtainable: Yes Allergies: Coded Allergies: No Known Allergies (Unverified , 05/14/17) Subjective no c/o Objective Last 24 Hour Vital Signs Date Time Temp Pulse Resp B/P (MAP) Pulse Ox O2 Delivery O2 Flow Rate FiO2 05/17/17 04:47 98.8 80 19 134/65 95 Room Air 05/17/17 00:39 98.9 81 18 134/68 96 Room Air 05/16/17 20:00 99.6 94 19 138/72 97 Room Air 05/16/17 18:27 98.3 81 18 138/69 95 Room Air 05/16/17 12:00 98.1 82 18 155/71 98 Room Air 05/16/17 08:00 98.1 97 18 134/64 95 Room Air Height (Feet): 5 Height (Inches): 5.00 Weight (Pounds): 140 General Appearance: alert EENT: normal ENT inspection Neck: supple Cardiovascular: normal rate Respiratory/Chest: lungs clear Abdomen: normal bowel sounds, non tender, soft Extremities: non-tender BREONNA ROSEN May 17, 2017 06:48
[2017-05-17 08:00] VITALS: BP 163/79
[2017-05-17] MEDS: Aspirin Baby 81mg ORAL SCH (08:32)
[2017-05-17 08:33] LABS: BASOPHILS % (AUTO) 0.7 % (0.0-2.0); EOSINOPHILS % (AUTO) 7.3 % (0.0-3.0); LYMPHOCYTES % (AUTO) 33.6 % (20.0-45.0); MEAN CORPUSCULAR HEMOGLOBIN 34.4 PG (27.0-31.0); MEAN CORPUSCULAR HGB CONC 34.1 G/DL (32.0-36.0); MEAN CORPUSCULAR VOLUME 101 FL (80-99); MEAN PLATELET VOLUME 6.7 FL (6.5-10.1); MONOCYTES % (AUTO) 8.7 % (1.0-10.0); NEUTROPHILS % (AUTO) 49.7 % (45.0-75.0); PLATELET COUNT 128 K/UL (150-450); RED BLOOD COUNT 2.71 M/UL (4.70-6.10)
[2017-05-17 09:04] LABS: ALANINE AMINOTRANSFERASE 33 U/L (12-78); ANION GAP 7 mmol/L (5-15); ASPARTATE AMINO TRANSFERASE 28 U/L (15-37); CALCIUM 8.4 MG/DL (8.5-10.1); CARBON DIOXIDE 26 MMOL/L (21-32); CHLORIDE 102 MMOL/L (98-107); CREATININE 1.1 MG/DL (0.55-1.30); PHOSPHORUS 2.9 MG/DL (2.5-4.9); POTASSIUM 3.7 MMOL/L (3.5-5.1); SODIUM 135 MMOL/L (136-145); TOTAL PROTEIN 7.1 G/DL (6.4-8.2)
--- NOTE | 2017-05-17 10:50 | Pulmonology Progress Note ---
Assessment/Plan Problems: (1) Hemorrhagic shock (2) Upper GI bleed (3) CAD (coronary artery disease) (4) Stented coronary artery Assessment/Plan h/h stable upper endoscopy showed esophagitis symptomatic treatment f/u cardio recommendation back on aspirine and Plavix dc home when pain in Left shoulder is controlled Subjective ROS Limited/Unobtainable: No Interval Events: pain is better controlled HEENT: Repors: no symptoms Allergies: Coded Allergies: No Known Allergies (Unverified , 05/14/17) Objective Last 24 Hour Vital Signs Date Time Temp Pulse Resp B/P (MAP) Pulse Ox O2 Delivery O2 Flow Rate FiO2 05/17/17 08:00 97.4 80 18 163/79 97 Room Air 05/17/17 04:47 98.8 80 19 134/65 95 Room Air 05/17/17 00:39 98.9 81 18 134/68 96 Room Air 05/16/17 20:00 99.6 94 19 138/72 97 Room Air 05/16/17 18:27 98.3 81 18 138/69 95 Room Air 05/16/17 12:00 98.1 82 18 155/71 98 Room Air HEENT: atraumatic Respiratory/Chest: chest wall non-tender, lungs clear Cardiovascular: normal peripheral pulses, normal rate Abdomen: normal bowel sounds, no organomegaly Extremities: no cyanosis Laboratory Tests 05/17/17 07:05: White Blood Count 6.0, Red Blood Count 2.71L, Hemoglobin 9.3L, Hematocrit 27.3L , Mean Corpuscular Volume 101H, Mean Corpuscular Hemoglobin 34.4H, Mean Corpuscular Hemoglobin Concent 34.1, Red Cell Distribution Width 11.0L, Platelet Count 128L, Mean Platelet Volume 6.7, Neutrophils (%) (Auto) 49.7, Lymphocytes (%) (Auto) 33.6, Monocytes (%) (Auto) 8.7, Eosinophils (%) (Auto) 7.3H, Basophils (%) (Auto) 0.7, Sodium Level 135L, Potassium Level 3.7, Chloride Level 102, Carbon Dioxide Level 26, Anion Gap 7, Blood Urea Nitrogen 7 , Creatinine 1.1, Estimat Glomerular Filtration Rate , Glucose Level 107H, Calcium Level 8.4L, Phosphorus Level 2.9, Magnesium Level 2.0, Total Bilirubin 0.6, Aspartate Amino Transf (AST/SGOT) 28, Alanine Aminotransferase (ALT/SGPT) 33, Alkaline Phosphatase 54, Total Protein 7.1, Albumin 3.5, Globulin 3.6, Albumin/Globulin Ratio 1.0 Current Medications Medications (Trade) Dose Ordered Sig/Jay Route PRN Reason Start Time Stop Time Status Last Admin Dose Admin Acetaminophen (Tylenol) 650 mg Q4H PRN ORAL fever 05/15/17 17:00 06/13/17 16:59 Acetaminophen (Tylenol) 650 mg Q6H PRN ORAL Mild Pain/Temp > 100.5 05/16/17 15:45 06/15/17 15:44 Acetaminophen/ Hydrocodone Bitart ([place] 10/325) 1 ea Q4H PRN ORAL For Pain 05/16/17 17:30 05/23/17 17:29 05/17/17 06:17 Al Hydroxide/Mg Hydroxide (Mylanta II) 30 ml Q6H PRN ORAL dyspepsia 05/15/17 17:00 06/13/17 16:59 Aspirin (ASA) 81 mg DAILY ORAL 05/15/17 18:15 06/14/17 18:14 05/17/17 08:32 Clopidogrel Bisulfate (Plavix) 75 mg DAILY ORAL 05/15/17 18:15 06/14/17 18:14 05/17/17 08:32 Dextrose (Dextrose 50%) STAT PRN IV Hypoglycemia 05/15/17 17:00 06/14/17 16:59 Diphenhydramine HCl (Benadryl) 25 mg Q6H PRN ORAL Itching/Pruritis 05/15/17 17:00 06/13/17 16:59 Morphine Sulfate (Morphine Sulfate) 4 mg Q4H PRN IVP Severe Pain if unable to charis 05/15/17 17:15 05/22/17 17:14 05/16/17 12:20 Morphine Sulfate (Morphine 5mg/ 2.5ml Oral Soln) 5 mg Q2H PRN ORAL For Severe Pain 05/15/17 15:00 06/13/17 12:59 Nitroglycerin (Ntg) 0.4 mg Q5M X 3 DOSES PRN SL Prn Chest Pain 05/15/17 15:00 06/13/17 14:44 Ondansetron HCl (Zofran) 4 mg Q6H PRN IVP Nausea & Vomiting 05/15/17 17:00 06/13/17 16:59 Pantoprazole (Protonix) 40 mg DAILY ORAL 05/17/17 09:00 06/16/17 08:59 05/17/17 08:32 Polyethylene Glycol (Miralax) 17 gm HSPRN PRN ORAL Constipation 05/16/17 17:00 06/13/17 16:59 Temazepam (Restoril) 15 mg HSPRN PRN ORAL Insomnia 05/15/17 17:00 05/22/17 16:59 05/16/17 21:35 MARTA ZALDIVAR May 17, 2017 10:50
[2017-05-17 12:00] VITALS: BP 150/69
--- NOTE | 2017-05-17 14:16 | Internal Med Progress Note ---
Subjective Date of Service: May 17, 2017 Physician Name Cameron,Ayleen Attending Physician Ty Wu MD Current Medications Medications (Trade) Dose Ordered Sig/Jay Route PRN Reason Start Time Stop Time Status Last Admin Dose Admin Acetaminophen (Tylenol) 650 mg Q4H PRN ORAL fever 05/15/17 17:00 06/13/17 16:59 Acetaminophen (Tylenol) 650 mg Q6H PRN ORAL Mild Pain/Temp > 100.5 05/16/17 15:45 06/15/17 15:44 Acetaminophen/ Hydrocodone Bitart ([place] 10/325) 1 ea Q4H PRN ORAL For Pain 05/16/17 17:30 05/23/17 17:29 05/17/17 12:26 Al Hydroxide/Mg Hydroxide (Mylanta II) 30 ml Q6H PRN ORAL dyspepsia 05/15/17 17:00 06/13/17 16:59 Aspirin (ASA) 81 mg DAILY ORAL 05/15/17 18:15 06/14/17 18:14 05/17/17 08:32 Clopidogrel Bisulfate (Plavix) 75 mg DAILY ORAL 05/15/17 18:15 06/14/17 18:14 05/17/17 08:32 Dextrose (Dextrose 50%) STAT PRN IV Hypoglycemia 05/15/17 17:00 06/14/17 16:59 Diphenhydramine HCl (Benadryl) 25 mg Q6H PRN ORAL Itching/Pruritis 05/15/17 17:00 06/13/17 16:59 Morphine Sulfate (Morphine Sulfate) 4 mg Q4H PRN IVP Severe Pain if unable to charis 05/15/17 17:15 05/22/17 17:14 05/16/17 12:20 Morphine Sulfate (Morphine 5mg/ 2.5ml Oral Soln) 5 mg Q2H PRN ORAL For Severe Pain 05/15/17 15:00 06/13/17 12:59 Nitroglycerin (Ntg) 0.4 mg Q5M X 3 DOSES PRN SL Prn Chest Pain 05/15/17 15:00 06/13/17 14:44 Ondansetron HCl (Zofran) 4 mg Q6H PRN IVP Nausea & Vomiting 05/15/17 17:00 06/13/17 16:59 Pantoprazole (Protonix) 40 mg DAILY ORAL 05/17/17 09:00 06/16/17 08:59 05/17/17 08:32 Polyethylene Glycol (Miralax) 17 gm HSPRN PRN ORAL Constipation 05/16/17 17:00 06/13/17 16:59 Temazepam (Restoril) 15 mg HSPRN PRN ORAL Insomnia 05/15/17 17:00 05/22/17 16:59 05/16/17 21:35 Allergies: Coded Allergies: No Known Allergies (Unverified , 05/14/17) Subjective 76 YO M admitted with hematemesis. S/P endoscopy 05/15/17. Cover for Int Rahul- Dr Wu Objective Last Vital Signs Date Time Temp Pulse Resp B/P (MAP) Pulse Ox O2 Delivery O2 Flow Rate FiO2 05/17/17 13:25 97.4 05/17/17 08:00 80 18 163/79 97 Room Air 05/15/17 10:40 3.0 Laboratory Tests Test 05/17/17 07:05 White Blood Count 6.0 K/UL (4.8-10.8) Red Blood Count 2.71 M/UL (4.70-6.10) L Hemoglobin 9.3 G/DL (14.2-18.0) L Hematocrit 27.3 % (42.0-52.0) L Mean Corpuscular Volume 101 FL (80-99) H Mean Corpuscular Hemoglobin 34.4 PG (27.0-31.0) H Mean Corpuscular Hemoglobin Concent 34.1 G/DL (32.0-36.0) Red Cell Distribution Width 11.0 % (11.6-14.8) L Platelet Count 128 K/UL (150-450) L Mean Platelet Volume 6.7 FL (6.5-10.1) Neutrophils (%) (Auto) 49.7 % (45.0-75.0) Lymphocytes (%) (Auto) 33.6 % (20.0-45.0) Monocytes (%) (Auto) 8.7 % (1.0-10.0) Eosinophils (%) (Auto) 7.3 % (0.0-3.0) H Basophils (%) (Auto) 0.7 % (0.0-2.0) Sodium Level 135 MMOL/L (136-145) L Potassium Level 3.7 MMOL/L (3.5-5.1) Chloride Level 102 MMOL/L (98-107) Carbon Dioxide Level 26 MMOL/L (21-32) Anion Gap 7 mmol/L (5-15) Blood Urea Nitrogen 7 mg/dL (7-18) Creatinine 1.1 MG/DL (0.55-1.30) Estimat Glomerular Filtration Rate mL/min (>60) Glucose Level 107 MG/DL (74-106) H Calcium Level 8.4 MG/DL (8.5-10.1) L Phosphorus Level 2.9 MG/DL (2.5-4.9) Magnesium Level 2.0 MG/DL (1.8-2.4) Total Bilirubin 0.6 MG/DL (0.2-1.0) Aspartate Amino Transf (AST/SGOT) 28 U/L (15-37) Alanine Aminotransferase (ALT/SGPT) 33 U/L (12-78) Alkaline Phosphatase 54 U/L (46-116) Total Protein 7.1 G/DL (6.4-8.2) Albumin 3.5 G/DL (3.4-5.0) Globulin 3.6 g/dL Albumin/Globulin Ratio 1.0 (1.0-2.7) Objective General Appearance: WD/WN, no apparent distress, alert EENT: PERRL/EOMI, normal ENT inspection, TMs normal Neck: non-tender, normal alignment, supple, normal inspection Cardiovascular: normal peripheral pulses, normal rate, regular rhythm, no gallop/murmur, no JVD Respiratory/Chest: chest wall non-tender, lungs clear, normal breath sounds, no respiratory distress, no accessory muscle use Abdomen: soft, no organomegaly, no mass, decreased bowel sounds, tender Extremities: normal range of motion, non-tender 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 No clear source of bleeding. Will require OP colonoscopy-see GI note. (4) CAD (coronary artery disease) Assessment & Plan: Restart plavix and ASA per cardiology Status: progressing AYLEEN CAMERON May 17, 2017 14:16
--- NOTE | 2017-05-17 17:18 | Cardiology Progress Note ---
Assessment/Plan Problem List: (1) Hematemesis (2) Upper GI bleed (3) CAD (coronary artery disease) Status: stable, progressing Status Narrative Mr Farah is s/p LAD PCI / MARK ANTHONY in 02/2017. He has no angina or chf He was adm w/ ugi bleed/ coffee ground emesis,and egd showed gastritis. Assessment/Plan H/H has decreased slightly, but he has no abd c/o and no active bleeding noted.t. followup h/h in am Continue asa/plavix for stent. GI evaluation noted - Continue PPI. Plan for outpt colonoscopy. Subjective ROS Limited/Unobtainable: No Subjective Cardiology for Dr. Brand Mr. Farah has no c/o Objective Last 24 Hour Vital Signs Date Time Temp Pulse Resp B/P (MAP) Pulse Ox O2 Delivery O2 Flow Rate FiO2 05/17/17 13:25 97.4 05/17/17 12:00 97.8 72 20 150/69 99 Room Air 05/17/17 08:00 97.4 80 18 163/79 97 Room Air 05/17/17 04:47 98.8 80 19 134/65 95 Room Air 05/17/17 00:39 98.9 81 18 134/68 96 Room Air 05/16/17 20:00 99.6 94 19 138/72 97 Room Air 05/16/17 18:27 98.3 81 18 138/69 95 Room Air General Appearance: WD/WN, no apparent distress, alert, thin EENT: PERRL/EOMI Neck: supple, no JVD Rhythm: NSR Cardiovascular: normal rate, regular rhythm, no gallop/murmur Respiratory/Chest: lungs clear Abdomen: normal bowel sounds, non tender, soft Extremities: no swelling Intake and Output 05/17/17 05/18/17 18:59 06:59 Intake Total 480 ml Balance 480 ml Intake Oral 480 ml # Voids 1 Laboratory Tests Test 05/17/17 07:05 White Blood Count 6.0 K/UL (4.8-10.8) Red Blood Count 2.71 M/UL (4.70-6.10) L Hemoglobin 9.3 G/DL (14.2-18.0) L Hematocrit 27.3 % (42.0-52.0) L Mean Corpuscular Volume 101 FL (80-99) H Mean Corpuscular Hemoglobin 34.4 PG (27.0-31.0) H Mean Corpuscular Hemoglobin Concent 34.1 G/DL (32.0-36.0) Red Cell Distribution Width 11.0 % (11.6-14.8) L Platelet Count 128 K/UL (150-450) L Mean Platelet Volume 6.7 FL (6.5-10.1) Neutrophils (%) (Auto) 49.7 % (45.0-75.0) Lymphocytes (%) (Auto) 33.6 % (20.0-45.0) Monocytes (%) (Auto) 8.7 % (1.0-10.0) Eosinophils (%) (Auto) 7.3 % (0.0-3.0) H Basophils (%) (Auto) 0.7 % (0.0-2.0) Sodium Level 135 MMOL/L (136-145) L Potassium Level 3.7 MMOL/L (3.5-5.1) Chloride Level 102 MMOL/L (98-107) Carbon Dioxide Level 26 MMOL/L (21-32) Anion Gap 7 mmol/L (5-15) Blood Urea Nitrogen 7 mg/dL (7-18) Creatinine 1.1 MG/DL (0.55-1.30) Estimat Glomerular Filtration Rate mL/min (>60) Glucose Level 107 MG/DL (74-106) H Calcium Level 8.4 MG/DL (8.5-10.1) L Phosphorus Level 2.9 MG/DL (2.5-4.9) Magnesium Level 2.0 MG/DL (1.8-2.4) Total Bilirubin 0.6 MG/DL (0.2-1.0) Aspartate Amino Transf (AST/SGOT) 28 U/L (15-37) Alanine Aminotransferase (ALT/SGPT) 33 U/L (12-78) Alkaline Phosphatase 54 U/L (46-116) Total Protein 7.1 G/DL (6.4-8.2) Albumin 3.5 G/DL (3.4-5.0) Globulin 3.6 g/dL Albumin/Globulin Ratio 1.0 (1.0-2.7) CRISPIN GAY May 17, 2017 17:18
[2017-05-17 20:18] VITALS: BP_SYST 152; BP_SYST 182; BP_DIAS 76
[2017-05-18 04:00] VITALS: BP 139/67
[2017-05-18] MEDS: Norco 10mg/325mg tab ORAL PRN ×3 (05:51→14:55)
[2017-05-18 08:00] VITALS: BP 147/77
[2017-05-18 08:01] LABS: BASOPHILS % (AUTO) 0.6 % (0.0-2.0); EOSINOPHILS % (AUTO) 7.5 % (0.0-3.0); MEAN CORPUSCULAR HEMOGLOBIN 34.1 PG (27.0-31.0); MEAN CORPUSCULAR HGB CONC 34.2 G/DL (32.0-36.0); MEAN CORPUSCULAR VOLUME 100 FL (80-99); MEAN PLATELET VOLUME 6.8 FL (6.5-10.1); MONOCYTES % (AUTO) 8.5 % (1.0-10.0); NEUTROPHILS % (AUTO) 57.4 % (45.0-75.0); PLATELET COUNT 151 K/UL (150-450); RED BLOOD COUNT 2.83 M/UL (4.70-6.10); RED CELL DISTRIBUTION WIDTH 10.9 % (11.6-14.8); WHITE BLOOD COUNT 6.4 K/UL (4.8-10.8)
[2017-05-18] MEDS: Aspirin Baby 81mg ORAL SCH (08:20)
[2017-05-18 08:26] LABS: ANION GAP 8 mmol/L (5-15); CALCIUM 8.9 MG/DL (8.5-10.1); CARBON DIOXIDE 28 MMOL/L (21-32); CHLORIDE 99 MMOL/L (98-107); POTASSIUM 3.9 MMOL/L (3.5-5.1); SODIUM 135 MMOL/L (136-145)
--- NOTE | 2017-05-18 10:32 | GI Progress Note ---
Assessment/Plan Problems: (1) Hematemesis ICD Codes: K92.0 - Hematemesis SNOMED: 8520847 Qualifiers: Qualified Codes: K92.0 - Hematemesis (2) Coffee ground emesis ICD Codes: K92.0 - Hematemesis SNOMED: 225660746, 35276477 (3) Epistaxis ICD Codes: R04.0 - Epistaxis SNOMED: 153498914, 52126970 (4) Esophagitis ICD Codes: K20.9 - Esophagitis, unspecified SNOMED: 72852462 Status: stable Status Narrative Discussed with Dr. Cobb. Assessment/Plan s/p EGD without obvious GIB okay for DC per GI standpoint needs out patient colonoscopy fu H&H fu stool ob change protonix to po daily fu cardiology Subjective Subjective ready for dc Objective Last 24 Hour Vital Signs Date Time Temp Pulse Resp B/P (MAP) Pulse Ox O2 Delivery O2 Flow Rate FiO2 05/18/17 08:00 97.4 81 19 147/77 96 Room Air 05/18/17 06:50 97.7 05/18/17 04:00 97.7 81 18 139/67 95 Room Air 05/17/17 20:18 98.1 89 19 152/76 98 Room Air 05/17/17 12:00 97.8 72 20 150/69 99 Room Air Intake and Output 05/18/17 05/19/17 19:00 07:00 Intake Total 240 ml Balance 240 ml Intake Oral 240 ml Laboratory Tests Test 05/18/17 06:25 White Blood Count 6.4 K/UL (4.8-10.8) Red Blood Count 2.83 M/UL (4.70-6.10) L Hemoglobin 9.7 G/DL (14.2-18.0) L Hematocrit 28.3 % (42.0-52.0) L Mean Corpuscular Volume 100 FL (80-99) H Mean Corpuscular Hemoglobin 34.1 PG (27.0-31.0) H Mean Corpuscular Hemoglobin Concent 34.2 G/DL (32.0-36.0) Red Cell Distribution Width 10.9 % (11.6-14.8) L Platelet Count 151 K/UL (150-450) Mean Platelet Volume 6.8 FL (6.5-10.1) Neutrophils (%) (Auto) 57.4 % (45.0-75.0) Lymphocytes (%) (Auto) 26.0 % (20.0-45.0) Monocytes (%) (Auto) 8.5 % (1.0-10.0) Eosinophils (%) (Auto) 7.5 % (0.0-3.0) H Basophils (%) (Auto) 0.6 % (0.0-2.0) Sodium Level 135 MMOL/L (136-145) L Potassium Level 3.9 MMOL/L (3.5-5.1) Chloride Level 99 MMOL/L (98-107) Carbon Dioxide Level 28 MMOL/L (21-32) Anion Gap 8 mmol/L (5-15) Blood Urea Nitrogen 11 mg/dL (7-18) Creatinine 1.0 MG/DL (0.55-1.30) Estimat Glomerular Filtration Rate mL/min (>60) Glucose Level 105 MG/DL (74-106) Calcium Level 8.9 MG/DL (8.5-10.1) Height (Feet): 5 Height (Inches): 5.00 Weight (Pounds): 140 General Appearance: WD/WN, no apparent distress, alert Cardiovascular: normal rate Respiratory/Chest: normal breath sounds, no respiratory distress Abdominal Exam: normal bowel sounds, non tender, soft Extremities: normal range of motion, non-tender Brie Power N.P. May 18, 2017 10:32
[2017-05-18 12:00] VITALS: BP 136/70
--- NOTE | 2017-05-18 12:03 | Internal Med Progress Note ---
Subjective Date of Service: May 18, 2017 Physician Name Cameron,Ayleen Attending Physician Ty Wu MD Current Medications Medications (Trade) Dose Ordered Sig/Jay Route PRN Reason Start Time Stop Time Status Last Admin Dose Admin Acetaminophen (Tylenol) 650 mg Q4H PRN ORAL fever 05/15/17 17:00 06/13/17 16:59 Acetaminophen (Tylenol) 650 mg Q6H PRN ORAL Mild Pain/Temp > 100.5 05/16/17 15:45 06/15/17 15:44 Acetaminophen/ Hydrocodone Bitart ([place] 10/325) 1 ea Q4H PRN ORAL For Pain 05/16/17 17:30 05/23/17 17:29 05/18/17 10:36 Al Hydroxide/Mg Hydroxide (Mylanta II) 30 ml Q6H PRN ORAL dyspepsia 05/15/17 17:00 06/13/17 16:59 Aspirin (ASA) 81 mg DAILY ORAL 05/15/17 18:15 06/14/17 18:14 05/18/17 08:20 Clopidogrel Bisulfate (Plavix) 75 mg DAILY ORAL 05/15/17 18:15 06/14/17 18:14 05/18/17 08:19 Dextrose (Dextrose 50%) STAT PRN IV Hypoglycemia 05/15/17 17:00 06/14/17 16:59 Diphenhydramine HCl (Benadryl) 25 mg Q6H PRN ORAL Itching/Pruritis 05/15/17 17:00 06/13/17 16:59 Morphine Sulfate (Morphine Sulfate) 4 mg Q4H PRN IVP Severe Pain if unable to charis 05/15/17 17:15 05/22/17 17:14 05/16/17 12:20 Morphine Sulfate (Morphine 5mg/ 2.5ml Oral Soln) 5 mg Q2H PRN ORAL For Severe Pain 05/15/17 15:00 06/13/17 12:59 Nitroglycerin (Ntg) 0.4 mg Q5M X 3 DOSES PRN SL Prn Chest Pain 05/15/17 15:00 06/13/17 14:44 Ondansetron HCl (Zofran) 4 mg Q6H PRN IVP Nausea & Vomiting 05/15/17 17:00 06/13/17 16:59 Pantoprazole (Protonix) 40 mg DAILY ORAL 05/17/17 09:00 06/16/17 08:59 05/18/17 08:19 Polyethylene Glycol (Miralax) 17 gm HSPRN PRN ORAL Constipation 05/16/17 17:00 06/13/17 16:59 Temazepam (Restoril) 15 mg HSPRN PRN ORAL Insomnia 05/15/17 17:00 05/22/17 16:59 05/16/17 21:35 Allergies: Coded Allergies: No Known Allergies (Unverified , 05/14/17) ROS Limited/Unobtainable: No Constitutional: Reports: no symptoms HEENT: Reports: no symptoms Cardiovascular: Reports: no symptoms Respiratory: Reports: no symptoms Gastrointestinal/Abdominal: Reports: no symptoms Genitourinary: Reports: no symptoms Neurologic/Psychiatric: Reports: no symptoms Subjective 76 YO M admitted with hematemesis. S/P endoscopy 05/15/17. Cover for Int Rahul- Dr Wu Objective Last Vital Signs Date Time Temp Pulse Resp B/P (MAP) Pulse Ox O2 Delivery O2 Flow Rate FiO2 05/18/17 08:00 97.4 81 19 147/77 96 Room Air 05/15/17 10:40 3.0 Laboratory Tests Test 05/18/17 06:25 White Blood Count 6.4 K/UL (4.8-10.8) Red Blood Count 2.83 M/UL (4.70-6.10) L Hemoglobin 9.7 G/DL (14.2-18.0) L Hematocrit 28.3 % (42.0-52.0) L Mean Corpuscular Volume 100 FL (80-99) H Mean Corpuscular Hemoglobin 34.1 PG (27.0-31.0) H Mean Corpuscular Hemoglobin Concent 34.2 G/DL (32.0-36.0) Red Cell Distribution Width 10.9 % (11.6-14.8) L Platelet Count 151 K/UL (150-450) Mean Platelet Volume 6.8 FL (6.5-10.1) Neutrophils (%) (Auto) 57.4 % (45.0-75.0) Lymphocytes (%) (Auto) 26.0 % (20.0-45.0) Monocytes (%) (Auto) 8.5 % (1.0-10.0) Eosinophils (%) (Auto) 7.5 % (0.0-3.0) H Basophils (%) (Auto) 0.6 % (0.0-2.0) Sodium Level 135 MMOL/L (136-145) L Potassium Level 3.9 MMOL/L (3.5-5.1) Chloride Level 99 MMOL/L (98-107) Carbon Dioxide Level 28 MMOL/L (21-32) Anion Gap 8 mmol/L (5-15) Blood Urea Nitrogen 11 mg/dL (7-18) Creatinine 1.0 MG/DL (0.55-1.30) Estimat Glomerular Filtration Rate mL/min (>60) Glucose Level 105 MG/DL (74-106) Calcium Level 8.9 MG/DL (8.5-10.1) Intake and Output 05/18/17 05/19/17 19:00 07:00 Intake Total 240 ml Balance 240 ml Intake Oral 240 ml Objective General Appearance: WD/WN, no apparent distress, alert EENT: PERRL/EOMI, normal ENT inspection, TMs normal Neck: non-tender, normal alignment, supple, normal inspection Cardiovascular: normal peripheral pulses, normal rate, regular rhythm, no gallop/murmur, no JVD Respiratory/Chest: chest wall non-tender, lungs clear, normal breath sounds, no respiratory distress, no accessory muscle use Abdomen: soft, no organomegaly, no mass, decreased bowel sounds, tender Extremities: normal range of motion, non-tender Neurologic: 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 No clear source of bleeding. Will require OP colonoscopy-see GI note. (4) CAD (coronary artery disease) Assessment & Plan: Restart plavix and ASA per cardiology Status: stable Assessment/Plan D/C home today. F/U PCP Dr Garzon for outpatient colonoscopy AYLEEN CAMERON May 18, 2017 12:03
[2017-05-18] MEDS ORDERED: PROTONIX40 MG ORAL (12:05)
[2017-05-18] MEDS ORDERED: HYDROCODON-ACE1 EA13 ORAL (12:05)
--- NOTE | 2017-05-18 12:27 | Pulmonology Progress Note ---
Assessment/Plan Problems: (1) Hemorrhagic shock (2) Upper GI bleed (3) CAD (coronary artery disease) (4) Stented coronary artery Assessment/Plan h/h stable upper endoscopy showed esophagitis symptomatic treatment f/u cardio recommendation back on aspirine and Plavix pain controlled dc home today Subjective ROS Limited/Unobtainable: No Constitutional: Reports: no symptoms HEENT: Repors: no symptoms Allergies: Coded Allergies: No Known Allergies (Unverified , 05/14/17) Objective Last 24 Hour Vital Signs Date Time Temp Pulse Resp B/P (MAP) Pulse Ox O2 Delivery O2 Flow Rate FiO2 05/18/17 08:00 97.4 81 19 147/77 96 Room Air 05/18/17 06:50 97.7 05/18/17 04:00 97.7 81 18 139/67 95 Room Air 05/17/17 20:18 98.1 89 19 152/76 98 Room Air Intake and Output 05/18/17 05/19/17 19:00 07:00 Intake Total 240 ml Balance 240 ml Intake Oral 240 ml General Appearance: WD/WN HEENT: normocephalic Respiratory/Chest: chest wall non-tender, normal breath sounds, chest wall tender Cardiovascular: normal peripheral pulses, normal rate Abdomen: normal bowel sounds, no organomegaly Extremities: no cyanosis Skin: no rash Neurologic/Psychiatric: locksmith II-XII 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 normal Lymphatic: no neck adenopathy Laboratory Tests 05/18/17 06:25: White Blood Count 6.4, Red Blood Count 2.83L, Hemoglobin 9.7L, Hematocrit 28.3L , Mean Corpuscular Volume 100H, Mean Corpuscular Hemoglobin 34.1H, Mean Corpuscular Hemoglobin Concent 34.2, Red Cell Distribution Width 10.9L, Platelet Count 151, Mean Platelet Volume 6.8, Neutrophils (%) (Auto) 57.4, Lymphocytes (%) (Auto) 26.0, Monocytes (%) (Auto) 8.5, Eosinophils (%) (Auto) 7.5H, Basophils (%) (Auto) 0.6, Sodium Level 135L, Potassium Level 3.9, Chloride Level 99, Carbon Dioxide Level 28, Anion Gap 8, Blood Urea Nitrogen 11 , Creatinine 1.0, Estimat Glomerular Filtration Rate , Glucose Level 105, Calcium Level 8.9 Current Medications Medications (Trade) Dose Ordered Sig/Jay Route PRN Reason Start Time Stop Time Status Last Admin Dose Admin Acetaminophen (Tylenol) 650 mg Q4H PRN ORAL fever 05/15/17 17:00 06/13/17 16:59 Acetaminophen (Tylenol) 650 mg Q6H PRN ORAL Mild Pain/Temp > 100.5 05/16/17 15:45 06/15/17 15:44 Acetaminophen/ Hydrocodone Bitart ([place] 10/325) 1 ea Q4H PRN ORAL For Pain 05/16/17 17:30 05/23/17 17:29 05/18/17 10:36 Al Hydroxide/Mg Hydroxide (Mylanta II) 30 ml Q6H PRN ORAL dyspepsia 05/15/17 17:00 06/13/17 16:59 Aspirin (ASA) 81 mg DAILY ORAL 05/15/17 18:15 06/14/17 18:14 05/18/17 08:20 Clopidogrel Bisulfate (Plavix) 75 mg DAILY ORAL 05/15/17 18:15 06/14/17 18:14 05/18/17 08:19 Dextrose (Dextrose 50%) STAT PRN IV Hypoglycemia 05/15/17 17:00 06/14/17 16:59 Diphenhydramine HCl (Benadryl) 25 mg Q6H PRN ORAL Itching/Pruritis 05/15/17 17:00 06/13/17 16:59 Morphine Sulfate (Morphine Sulfate) 4 mg Q4H PRN IVP Severe Pain if unable to charis 05/15/17 17:15 05/22/17 17:14 05/16/17 12:20 Morphine Sulfate (Morphine 5mg/ 2.5ml Oral Soln) 5 mg Q2H PRN ORAL For Severe Pain 05/15/17 15:00 06/13/17 12:59 Nitroglycerin (Ntg) 0.4 mg Q5M X 3 DOSES PRN SL Prn Chest Pain 05/15/17 15:00 06/13/17 14:44 Ondansetron HCl (Zofran) 4 mg Q6H PRN IVP Nausea & Vomiting 05/15/17 17:00 06/13/17 16:59 Pantoprazole (Protonix) 40 mg DAILY ORAL 05/17/17 09:00 06/16/17 08:59 05/18/17 08:19 Polyethylene Glycol (Miralax) 17 gm HSPRN PRN ORAL Constipation 05/16/17 17:00 06/13/17 16:59 Temazepam (Restoril) 15 mg HSPRN PRN ORAL Insomnia 05/15/17 17:00 05/22/17 16:59 05/16/17 21:35 MARTA ZALIDVAR May 18, 2017 12:27
[2017-05-18 16:00] VITALS: BP 140/72
--- NOTE | 2017-05-18 20:46 | Diagnostic Imaging Report ---
APPROVED REPORT CPT Code: 39777 Present Symptoms Lower Extremity Pain: Bilateral BILATERAL: Imaging reveals a patent deep venous system bilaterally. There is no evidence of thrombus within the femoral, popliteal or tibial segments. The greater saphenous veins are also within normal limits. Doppler indicates normal spontaneous flow within these segments.
--- NOTE | 2017-05-19 11:15 | Discharge Summary ---
Discharge Summary Hospital Course Date of Admission May 14, 2017 at 06:20 Date of Discharge May 18, 2017 at 16:30 Admitting Diagnosis hematemesis/GI bleed HPI Polo Farah is a 76 year old male who was admitted on May 14, 2017 at 06:20 for Hematemesis/Gi Bleed Hospital Course dc summary [id number] Discharge Medications New Medications: Hydrocodone Bit/Acetaminophen 10-325* (Hydrocodon-Acetaminophn 10-325*) 1 Each Tablet 1 EA ORAL Q4H PRN for 10 Days, TAB Pantoprazole* (Protonix*) 40 Mg Tablet.dr 40 MG ORAL DAILY for 30 Days, TAB Continued Medications: Aspirin* (Aspirin*) 81 Mg Tab.chew 81 MG ORAL DAILY, TAB Ticagrelor* (Brilinta*) 90 Mg Tablet 90 MG PO BID, TAB Discharge Condition Upon Discharge: stable Discharge Disposition Patient was discharged to Home with Home Health(06) Discharge Diagnoses: Discharge Instructions Discharge Instructions Special Instructions I have been assigned to complete a D/C Summary on this account. I was not involved in the patient management Samantha Panda NP ([facility]) May 19, 2017 11:15
--- NOTE | 2017-05-19 20:45 | Discharge Summary 2 SIG ---
DATE OF ADMISSION: 05/14/2017 DATE OF DISCHARGE: 05/18/2017 REASON FOR ADMISSION: 76-year-old male presented from home with coffee-grounds emesis and later vomiting bright red blood. The patient reported drinking alcohol. He reported a fall and hitting his head. According to his , the patient had a cardiac stent placed at [facility] recently. The patient was on aspirin and Brilinta prior to admission. Workup in the emergency room revealed stable vital signs. Pulse oximetry stable on room air. WBC -12.8. The patient was anemic, hemoglobin- 10.5, and hematocrit- 32.4. Potassium- 3.4, BUN -16 and creatinine -1.4. Troponin negative. Pro BNP -397. EKG revealed normal sinus rhythm with premature atrial contraction. No acute ischemic changes. Chest x-ray revealed no acute cardiopulmonary pathology. The patient undergone CT of the head, which revealed no acute intracranial pathology. CT of the facial bone revealed no acute injury. The patient also had x-ray of bilateral shoulders, which revealed no acute injury. Cervical spine x-ray revealed degenerative changes with moderate spondylosis at C3-C6, but no acute injury. The patient was admitted for further management with diagnoses of hemorrhagic shock, upper GI bleeding, anemia , coronary artery disease with stented artery. HOSPITAL STAY: The patient was admitted. Initially, kept NPO, on the IV fluids. GI consult was requested. GI hold all blood thinners, started the patient on PPI IV q.12 h. Anemia workup was initiated. The patient subsequently undergone next day esophagogastroduodenoscopy, which revealed distal minimal esophagitis and diffuse gastritis. The patient slowly started on diet, advanced as tolerated. Lipase was within normal limits. LFT, bilirubin all within normal limits. The patient counseled on abstinence from the alcohol. Per GI, esophagogastroduodenoscopy revealed no obvious GI bleeding or source of GI bleeding. Biopsy of stomach revealed moderate chronic H pylori gastritis, no dysplasia or malignancy. The patient will need outpatient colonoscopy. Hemoglobin and hematocrit remained on the baseline with small trend down from initial : upon admission, hemoglobin -10.2 and hematocrit -32.3 and prior to discharge hemoglobin -9.7 , hematocrit -28.3. The patient was counseled to follow up upon discharge with the primary medical doctor and schedule for outpatient colonoscopy. Cyber Legal Advisor seen the patient due to the history of coronary artery disease and stented artery. The patient had LAD PCI/MARK ANTHONY in 02/2017. Cyber Legal Advisor restarted aspirin and Brilinta. Per property claims manager, no evidence of angina and no evidence of congestive heart failure. Troponin x2 was negative. Venous duplex of bilateral extremities was negative. Prior to discharge PPI was changed to oral route. Bowel regimen instituted. Patient was able to tolerate diet. No further vomiting. Patient was counseled on abstinence from alcohol. Biopsy results returned after patient was discharged. Patient was contacted by GI specialist to follow up as outpatient in the clinic for treatment of H pylori infection. The patient was stable for discharge home. FINAL DIAGNOSES: 1. Hemorrhagic shock. 2. Upper gastrointestinal bleeding. 3. Anemia. 4. Status post esophagogastroduodenoscopy with biopsy. 5. Distal esophagitis. 6. Diffuse gastritis. 7. Coronary artery disease. 8. Stented coronary artery, status post LAD percutaneous coronary intervention/drug-eluting stent in 02/2017. 9. Alcohol abuse. 10.H. pylori gastritis DISCHARGE MEDICATIONS: See medication reconciliation list. DISCHARGE INSTRUCTIONS: The patient was discharged home with home health services, Follow up with the primary medical doctor and schedule outpatient colonoscopy. Ty Wu M.D. I have been assigned to dictate discharge summary on this account and I was not involved in the patient's management. Samnatha DiazMoh[facility]) N.PGinger DR: PO JOB#: [id number] CC: DIANA
--- NOTE | 2017-05-24 16:14 | Cardiology Report ---
APPROVED REPORT EKG Measurement Heart [id number] Normal sinus rhythm Septal infarct, age undetermined RV conduction delay Abnormal ECG
--- NOTE | 2017-05-24 16:22 | Cardiology Report ---
APPROVED REPORT EKG Measurement Heart [id number] Sinus tachycardia with premature atrial complexes Incomplete RBBB Septal infarct, age undetermined Abnormal ECG
--- NOTE | 2017-05-25 10:47 | Cardiology Report ---
APPROVED REPORT EXAM: Two-dimensional and M-mode echocardiogram with Doppler and color Doppler. INDICATION CAD M-Mode DIMENSIONS IVSd1.8 (0.7-1.1cm)Left Atrium (MM)4.0 (1.6-4.0cm) LVDd3.9 (3.5-5.6cm)Aortic Root4.0 (2.0-3.7cm) PWd1.2 (0.7-1.1cm)Aortic Cusp Exc.1.6 (1.5-2.0cm) LVDs2.3 (2.5-4.0cm) PWs2.0 cm Technically difficult study due to patients position. Normal left ventricular chamber size, systolic function and wall motion to extent visualized. Left ventricular ejection fraction estimated to be 65%. Moderate left ventricular hypertrophy. No evidence of pericardial effusion. Left atrial size is normal. Right atrial size is at upper limits of normal. Right ventricular chamber size is within normal limits. Focal aortic valve sclerosis with adequate cusp excursion. Thickened mitral valve leaflets with normal excursion. Mitral annulus and aortic root calcification. Pulmonic valve not well visualized. Normal tricuspid valve structure. IVC at normal size and collapsing with respiration. A color flow and spectral Doppler study was performed and revealed: Mild aortic insufficiency. Mild mitral regurgitation. Mitral diastolic velocities suggest reduced left ventricular relaxation c/w mild LV diastolic dysfunction (Grade I). Mild to moderate tricuspid regurgitation. Tricuspid systolic velocities suggests peak right ventricular systolic pressure of 35 mmHg, consistent with borderline mild pulmonary hypertension. Mild pulmonic regurgitation present.
== END 2017-05-18 16:30 | disposition home health service (06) | DRG 377 ==
LOC: EDBD 05:34 → EMR 05:44 → 2E 06:20 → EDBEDREQ 07:04 → 2E 10:40 → 3E 05-15 14:50
PROC: 0DB38ZX Excision of Lower Esophagus, Via Natural or Artificial Opening Endoscopic, Diagnostic (ICD-10-PCS; principal; 2017-05-15 10:20)
DX: K92.2 Gastrointestinal hemorrhage, unspecified (principal); R57.8 Other shock; I25.10 Atherosclerotic heart disease of native coronary artery without angina pectoris; Z87.891 Personal history of nicotine dependence; F10.10 Alcohol abuse, uncomplicated; Z95.5 Presence of coronary angioplasty implant and graft; Z91.81 History of falling; K20.8 Other esophagitis; K29.70 Gastritis, unspecified, without bleeding; D64.9 Anemia, unspecified; Z79.02 Long term (current) use of antithrombotics/antiplatelets
CPT/HCPCS: 36415; 70450; 70486; 71010; 72040; 80048; 80053; 82150; 82550; 82553; 83690; 83735; 83880; 84100; 84484; 85025; 85610; 85730; 86850; 86900; 86901; 93005; 93306; 93970; 94003; 94150; 99285; J2405